=== PATIENT | female | born 1940 | race Caucasian/White ===

== ENCOUNTER 2021-05-28 00:05 | Emergency (ER) | payer MEDICARE, SELFPAY ==
[2021-05-28 00:12] VITALS: BP 137/77; PULSE 100; RESP 20; TEMP 36.8; O2SAT 97
[2021-05-28 01:00] VITALS: BP 130/70; PULSE 97; RESP 19; O2SAT 99
[2021-05-28 02:00] VITALS: BP 129/88; PULSE 99; RESP 14; O2SAT 97
--- NOTE | 2021-05-28 02:40 | ED.GENADULT ---
HPI - General Adult General Chief complaint: Dental/Oral Stated complaint: uncontrolled bleeding from the mouth Time Seen by Provider: 05/28/21 00:39 Source: patient and family Mode of arrival: ambulatory Limitations: no limitations History of Present Illness HPI narrative: Patient is 81 years old white female came with bleeding from the right side of lower lip started prior to arrival to the emergency room. 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 No blood thinner. Related Data Allergies Allergy/AdvReac Type Severity Reaction Status Date / Time Penicillins Allergy Mild HIVES Verified 05/28/21 00:16 doxycycline AdvReac Unknown CAUSED Verified 05/28/21 00:16 ESOPHAGITIS PER PT Review of Systems Review of Systems: CONSTITUTIONAL: Denies fever, chills, or sweats. EYES: Denies visual changes, redness, or discharge. ENT: Denies rhinorrhea, congestion, sore throat, or otalgia. CARDIOVASCULAR: Denies chest pain, palpitations, or edema. RESPIRATORY: Denies cough or dyspnea. GASTROINTESTINAL: Denies abdominal pain, nausea, vomiting, or diarrhea. GENITOURINARY: Denies dysuria or hematuria. SKIN: Denies rash or itching. MUSCULOSKELETAL: Denies back pain, joint pain, or myalgia. NEUROLOGIC: Denies headache, numbness, or weakness. PSYCHIATRIC: Denies anxiety or depression. Exam Narrative: General appearance: Well-developed, well-nourished ENT: Lower lip showed 2 mm hole pouring blood. Neck: Supple, nontender Chest and respiratory: Airway patent, no respiratory distress, no accessory muscle use Heart: Regular rate/rhythm Neurologic: Alert and oriented ?3, SELF [employer]ED [employer] is normal as tested, no gross motor deficit Course Course Emergency Course: Stable, improved Vital Signs Vital signs: Vital Signs Temperature 36.8 C 05/28/21 00:12 Pulse Rate 100 05/28/21 00:12 Respiratory Rate 20 05/28/21 00:12 Blood Pressure 137/77 05/28/21 00:12 Pulse Oximetry 97 05/28/21 00:12 Temperature 36.8 C 05/28/21 00:12 Pulse Rate 100 05/28/21 00:12 Respiratory Rate 20 05/28/21 00:12 Blood Pressure 137/77 05/28/21 00:12 Pulse Oximetry 97 05/28/21 00:12 Procedures Other Procedure Procedure 1: Other Procedure: Postbiopsy bleeding, and left side of lower lip, local pressure for 20 minutes did not show any significant improvement, silver nitrate cauterization x2 was good enough to stop the bleeding. Patient tolerated the procedure well. Medical Decision Making MDM Narrative Medical decision making narrative: Local pressure for 20 minutes did not stop the bleeding, silver nitrate cauterization was good enough to stop the Pletal. Patient felt okay. Patient was observed for 1 hour after cauterization, no active bleeding. Differential Diagnosis Differential Diagnosis: Post biopsy bleeding Vital Signs Vital Signs: Vital Signs Temperature 36.8 C 05/28/21 00:12 Pulse Rate 100 05/28/21 00:12 Respiratory Rate 20 05/28/21 00:12 Blood Pressure 137/77 05/28/21 00:12 Pulse Oximetry 97 05/28/21 00:12 Temperature 36.8 C 05/28/21 00:12 Pulse Rate 100 05/28/21 00:12 Respiratory Rate 20 05/28/21 00:12 Blood Pressure 137/77 05/28/21 00:12 Pulse Oximetry 97 05/28/21 00:12 Lab Data Labs: Lab Results 05/28/21 Range/Units 01:22 Hep Bs Antibody Pending Hepatitis C Ab Screen Pending HIV 1&2 Ab/P24 Ag 4thGn Pending Critical Care Time Critical Care Time Critical Care Time: No Discharge Plan Discharge Clinical Impression: Post-op bleeding Qualifiers: Surgical complication system/body Area: skin Procedure type: dermatologic Qualified Code(s): L
== END 2021-05-28 02:50 | disposition home or self-care (01) ==
PROVIDERS: Emergency Provider Emergency Medicine; PCP Internal Medicine
DX: L76.21 Postprocedural hemorrhage of skin and subcutaneous tissue following a dermatologic procedure (principal)
CPT/HCPCS: 12011; 36415; 86703; 86706; 86803; 99283; G0432

== ENCOUNTER 2021-05-28 00:50 | Outpatient (CLI) | payer OTHER, SELFPAY ==
[2021-05-28 02:45] LABS: HIV 1/2 Ab P24 Ag Result Negative (Negative); Hepatitis B Surface Anti Res Negative; Hepatitis C Virus Antibody Negative (Negative)
== END 2021-05-28 00:51 | disposition home or self-care (01) ==
LOC: ANHED 06-25 15:38
PROVIDERS: Emergency Medicine; PCP Internal Medicine
DX: T14.8XXA Other injury of unspecified body region, initial encounter (principal)
CPT/HCPCS: 36415; 86703; 86706; 86803; G0432

== ENCOUNTER 2022-02-24 15:00 | Outpatient (RCR) | payer MEDICARE, SELFPAY ==
--- NOTE | 2021-12-10 16:39 | STOPEVAL ---
Thank you for referring Nahomi Fry to [facility].? The patient is scheduled to be seen for therapy? 2x/week for 4 weeks. Please review, sign, date and return this plan of care JIMENEZ. I agree with and certify that the following plan of care is medically necessary. 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 She reported no difficulty with chewing or swallowing following this surgery and was able to swallow pills on the back of the tongue. She reports the physician used muscle from the back to the front (of the tongue) and now tongue deviates to the right upon protrusion. She then stated that her physician was monitoring her lips as a precautionary measure. She stated it was biopsied twice, in 10/19, it was clear, however around May or June 2021 it was again judged to be okay, and she received two stitches in the lip that didn't hold and a hole in the lip began bleeding. She reports she came to [facility] where it was cauterized however she returned back to [facility] when it opened again and she required additional stitches. , her physician found white stuff and she underwent surgery to remove the cancer on 08/31/21. 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
--- NOTE | 2021-12-24 16:30 | PCSTNOTE ---
Patient cancelled last week and this week due to health issues. Will be trying to return next week.
--- NOTE | 2022-01-06 16:18 | STOPEVAL ---
Thank you for referring Nahomi Fry to [facility].? The patient is has made progress in her swallowing skills. She will continue in therapy? 2x/week for 4 weeks. Please review, sign, date and return this plan of care JIMENEZ. I agree with and certify that the following plan of care is medically necessary. Referring Physician Date Attending Provider: Rosalia Escalera, FELIX Therapy Assessment Status Assessment Status Assessment Status Progress Pain Assessment Timing of Pain Assessment Timing of Pain Assessment Pre-Treatment Self Report Self Report Pain Level 0 Pain Score Pain Score 0: Self Report Bedside Swallow Evaluation Consistency Solid Consistency Method of Presentation Finger/Hand Behaviors Observed Lengthy Oral Transit Time, Multiple Swallows Used,Oral Residue,Reduced Anterior Contain Occurrence of Coughing None Swallow Palpation Results Good Swallow Initiation,Strong Laryngeal Elevation Pureed Consistency 5 mL Method of Presentation Spoon Behaviors Observed Effortful Swallow,Multiple Swallows Used,Oral Residue, Reduced Anterior Contain Occurrence of Coughing None Vocal Quality After Swallowing Clear Swallow Palpation Results Good Swallow Initiation,Strong Laryngeal Elevation Thin Uncontrolled 1 Method of Presentation Straw Behaviors Observed Apparently Normal Swallow Occurrence of Coughing None Vocal Quality After Swallowing Clear Swallow Palpation Results Good Swallow Initiation,Strong Laryngeal Elevation Tolerance Tolerance For Swallow Slight Distress Alertness Awake/Safe Cooperativeness Calm,Cooperative Attention Attentive Awareness of Swallowing Problem Aware Awareness of Secretions Aware Postural Control Moves Independently Fatigability Does Not Fatigue Limiting Factors Comments See Clinical Summary. Recommendations Feeding Type Recommended Oral Supervision Recommended Eat Independently Positions Used Upright Food Consistency Minced and Moist, Level 5 Liquid Consistency Thin (0) Mealtime Procedures Recommended Alternate Solids/Liquids,Small Bites/Sips Bedside Swallow Comments See Clinical Summary. ST Clinical Summary Clinical Summary ST Clinical Summary Patient has been seen for a Swallowing Evaluation and four treatment sessions to address
--- NOTE | 2022-01-13 15:18 | PCSTNOTE ---
Cancelled on Thursday 01/11 due to illness.
--- NOTE | 2022-02-03 16:36 | STOPEVAL ---
SPEECH THERAPY PROGRESS NOTE AND PLAN TO CONTINUE Thank you for referring Nahomi Fry to [facility].? The patient is scheduled to be seen for therapy? 2x/week for 4 weeks. Please review, sign, date and return this plan of care JIMENEZ. I agree with and certify that the following plan of care is medically necessary. Referring Physician Date Attending Provider: Rosalia Escalera, FELIX Therapy Assessment Status Assessment Status Assessment Status Progress Pain Assessment Timing of Pain Assessment Timing of Pain Assessment Pre-Treatment Self Report Self Report Pain Level 0 Pain Score Pain Score 0: Self Report Bedside Swallow Evaluation Consistency Solid Consistency Method of Presentation Spoon Behaviors Observed Apparently Normal Swallow, Lengthy Oral Transit Time,Oral Residue Occurrence of Coughing None Vocal Quality After Swallowing Clear Swallow Palpation Results Good Swallow Initiation,Strong Laryngeal Elevation Pureed Consistency 5 mL Method of Presentation Spoon Behaviors Observed Apparently Normal Swallow Occurrence of Coughing None Vocal Quality After Swallowing Clear Swallow Palpation Results Good Swallow Initiation,Strong Laryngeal Elevation Thin Uncontrolled 1 Method of Presentation Straw Behaviors Observed Apparently Normal Swallow Occurrence of Coughing None Vocal Quality After Swallowing Clear Swallow Palpation Results Good Swallow Initiation,Strong Laryngeal Elevation Tolerance Tolerance For Swallow Slight Distress Swallowing Comments See Clinical SUmmary. Recommendations Feeding Type Recommended Oral ST Clinical Summary Clinical Summary ST Clinical Summary PROGRESS NOTE When asked if Speech Therapy has been helpful, patient stated that yes, she never would have eaten the foods she has been eating since initiation of ST, including spaghetti, ravioli, peaches, and cream filled donuts. Patient stated that she feels the need to continue in order to practice swallowing pills whole or cut into pieces in order to avoid crushing medicines. She also stated that she feels she only consumes small amount of
--- NOTE | 2022-03-03 10:44 | PCSTNOTE ---
Patient cancelled this session today; she is rescheduled for one day next week, the . A re-evaluation will be performed that date to determine progress and to assess need to continue.
== END 2022-03-10 23:59 | disposition home or self-care (01) ==
LOC: ANHST 15:00
PROVIDERS: PCP Internal Medicine; Visit Provider Physician Assistant Medical
DX: C00.1 Malignant neoplasm of external lower lip (principal); Z98.890 Other specified postprocedural states
CPT/HCPCS: 92526; 92610

== ENCOUNTER 2022-03-05 18:52 | Emergency (ER) | payer MEDICARE, SELFPAY ==
--- NOTE | ~2022-03-05 | XR_ITS ---
XR hip RT 2V w AP pelvis DATE: 03/05/2022 19:35 INDICATION: Fall today. Right hip pain. TECHNIQUE: AP pelvis. AP and lateral views of right hip. COMPARISON: None FINDINGS: No pelvic fracture or bone destruction is evident. Normal alignment at the pubic symphysis and sacroiliac joints. No fracture or dislocation, avascular necrosis or bone destruction of the right hip. Abdominal aortic calcification. There is a prominent amount fecal material in the rectum and colon. No bowel obstruction is detected. IMPRESSION: No pelvic or right hip fracture or dislocation Reviewed, dictated and finalized at location A.
--- NOTE | ~2022-03-05 | XR_ITS ---
XR shoulder RT min 2V DATE: 03/05/2022 19:36 INDICATION: Fall today. Right rib pain TECHNIQUE: 4 views COMPARISON: None FINDINGS: There is joint space narrowing and degenerative spurring of the right acromioclavicular jorge nt. No fracture or dislocation, periosteal reaction or bone destruction right shoulder Surgical clips overlie the right hilar area. Aortic atherosclerosis. Osteopenia. IMPRESSION: Degenerative change at the right, clavicular joint Reviewed, dictated and finalized at location A.
--- NOTE | ~2022-03-05 | CT_ITS ---
EXAMINATION: CT brain wo con DATE: 03/05/2022 19:45 INDICATION: Dizziness. Patient fell and struck head on a chair. Occipital hematoma. TECHNIQUE: Computed tomography (CT) of the head was performed without intravenous contrast. The mA wa s adjusted according to patient size. Iterative reconstruction technique was employed. Exam dose: 39 4.35 mGy-cm total exam DLP. COMPARISON: 06/20/2010 CT brain FINDINGS: Prominent soft tissue density within the right maxillary sinus. No intracranial mass lesion or hemorrhage or cerebrovascular accident, midline shift or mass effect o r subdural or epidural hematoma is detected. Bilateral carotid siphon internal carotid artery calcifications. There is nonspecific diminished atte nuation of the cerebral white matter, likely due to chronic small vessel ischemic changes. Moderately prominent cerebral and cerebellar volume loss. No skull fracture or bone destruction. IMPRESSION: Cerebral atherosclerosis and chronic small vessel ischemic changes of the cerebral white matter Moderately prominent cerebral and cerebellar volume loss No skull fracture or acute intracranial finding Reviewed, dictated and finalized at Location A. Reviewed, dictated and finalized at location A.
[2022-03-05 18:53] VITALS: BP 122/56; PULSE 91; RESP 18; TEMP 36.3; O2SAT 95
--- NOTE | 2022-03-05 19:10 | PC.NURSE ---
PT AND HER DAUGHTER REPORTS PT HAD ORAL SURGERY FOR SQUAMOUS CELL CARCINOMA AND JUST WAS WEANED OFF NARCOTICS AND DOES NOT WANT STARTED ON THOSE MEDS AGAIN
--- NOTE | 2022-03-05 19:18 | ED.FALL ---
HPI - Fall General Chief Complaint: Fall Stated Complaint: fall/hi Time Seen by Provider: 03/05/22 19:02 Source: RN notes reviewed History of Present Illness HPI Narrative: Patient presents emergency room from home for fall. Patient states that prior to arrival she was out working on floor bed when she tripped and fell she states she struck the right side of her head on a chair and landed on the ground on her right hip and right shoulder she notes pain in the region she denies any loss of consciousness she denies any neck pain chest pain shortness of breath abdominal pain nausea vomiting or any other symptoms states she has not anything for pain denies any numbness or tingling in the extremities Related Data Allergies Allergy/AdvReac Type Severity Reaction Status Date / Time Penicillins Allergy Mild HIVES Verified 05/28/21 00:16 doxycycline AdvReac Unknown CAUSED Verified 05/28/21 00:16 ESOPHAGITIS PER PT Review of Systems Review of Systems: Gen.: Denies fevers or chills Eyes: Denies eye pain or visual change ENT: Denies congestion Respiratory: Denies shortness of breath or cough CV: Denies chest pain or palpitations GI: Denies abdominal pain nausea, emesis or diarrhea Musculoskeletal: See HPI Neuro: Denies numbness, tingling, weakness or focal weakness Skin: Denies rash Except as documented, all other systems reviewed and negative [facility] Past Medical History Medical History (Updated 03/05/22 @ 20:05 by Clyde Montanez DO) Patient denies significant medical history Social History Social History (Updated 03/05/22 @ 19:19 by Clyde Montanez DO) Smoking status: Never smoker Exam Narrative: APPEARANCE: No acute distress, nontoxic, resting in bed EYES: EOMI, PERRL HEENT: Normocephalic, mild area of swelling ecchymosis over left posterior scalp, TMs clear bilaterally nares patent Neck: No midline tenderness palpation full range of motion without pain RESPIRATORY: No respiratory distress Clear to auscultation bilaterally with no rhonchi wheezing or rales. CARDIOVASCULAR: Regular rate and rhythm without murmurs rubs or gallops. ABDOMINAL: Soft, nontender, nondistended, no rebound or guarding MUSCULOSKELETAl: Moves all extremities. No clubbing, cyanosis or edema. Tender palpation right anterior lateral shoulder full range of motion without pain no tenderness of the right elbow or wrist radial pulse 2+ neurovascular intact, tender palpation of the right lateral hip no swelling or ecchymosis no tenderness of the right knee or ankle dorsalis pedis pulse is neurovascular tact no tenderness of the left upper or lower extremity NEURO: Awake and alert x4. Following commands, speech normal, no focal deficits SKIN:: Warm, dry. No rashes lesions or abrasions PSYCHIATRIC: Normal affect/mood, Course Course Emergency Course: Discussed with patient results of workup and diagnosis. Discussed need for follow-up with primary care, proper use of medication, and reasons to return to the emergency department. Patient understands and agrees to current treatment plan Vital Signs Vital signs: Vital Signs Temperature 97.4 F L 03/05/22 18:53 Pulse Rate 91 03/05/22 18:53 Respiratory Rate 18 03/05/22 18:53 Blood Pressure 122/56 L 03/05/22 18:53 Pulse Oximetry 95 03/05/22 18:53 Oxygen Delivery Room Air 03/05/22 18:53 Temperature 97.4 F L 03/05/22 18:53 Pulse Rate 91 03/05/22 18:53 Respiratory Rate 18 03/05/22 18:53 Blood Pressure 122/56 L 03/05/22 18:53 Pulse Oximetry 95 03/05/22 18:53 Oxygen Delivery Room Air 03/05/22 18:53 MDM - Fall Imaging Data Radiologist's impression: ITS Impressions Shoulder X-Ray 03/05/22 19:36 IMPRESSION: Degenerative change at the right, clavicular joint Hip/Pelvis X-Ray 03/05/22 19:38 IMPRESSION: No pelvic or right hip fracture or dislocation Head CT 03/05/22 19:48 IMPRESSION: Cerebral atherosclerosis and chronic small vessel is
--- NOTE | 2022-03-05 19:24 | PC.NURSE ---
Assuming care of pt.
[2022-03-05 20:28] VITALS: BP 137/66; PULSE 77; RESP 18; O2SAT 100
== END 2022-03-05 20:29 | disposition home or self-care (01) ==
PROVIDERS: Emergency Provider Emergency Medicine; PCP Internal Medicine
DX: S00.03XA Contusion of scalp, initial encounter (principal); S70.01XA Contusion of right hip, initial encounter; S40.011A Contusion of right shoulder, initial encounter; I67.2 Cerebral atherosclerosis; W01.190A Fall on same level from slipping, tripping and stumbling with subsequent striking against furniture, initial encounter
CPT/HCPCS: 70450; 73030; 73502; 99284

== ENCOUNTER 2022-04-12 15:00 | Outpatient (RCR) | payer MEDICARE, SELFPAY ==
--- NOTE | 2022-03-15 14:06 | STOPEVAL ---
PROGRESS NOTE AND RE-EVALUATION Thank you for referring Nahomi Fry to [facility].? This patient has been seen for direct swallowing therapy since 12/10/21 with therapy focusing on improving her ability to handle oral feedings. See below for significant progress. The patient will continue for additional sessions and is scheduled to be seen for therapy?2x/week for 5 weeks. Please review, sign, date and return this plan of care JIMENEZ. I agree with and certify that the following plan of care is medically necessary. Referring Physician Date Attending Provider: Rosalia Escalera, FELIX Therapy Assessment Status Assessment Status Assessment Status Progress Outpatient Past Medical History Past Medical History Source of Past Medical History Patient Hx Hematological Disorders No Significant History Endocrine History Hx Diabetes Yes Other History Hx Cancer Yes: Partial glossectomy/lip resection/lack of dentition right side Pain Assessment Timing of Pain Assessment Timing of Pain Assessment Assessment Self Report Self Report Pain Level 0 Pain Score Pain Score 0: [address] Report [address] Clinical Summary Clinical Summary ST Clinical Summary RE-EVALUATION AND PROGRESS NOTE This patient has been seen for an outpatient swallowing therapy evaluation and then treatments up to two times weekly with occasionally omitted visits secondary to illness, heat, and fall. Her last visit was 02/25 and her re-evaluation was scheduled for March 05 however sessions were cancelled until this visit date due to above- mentioned issues. During treatment sessions, therapy focused on increasing strength of the oral motor movements to facilitate safe swallowing (i.e. labial/ lingual rate, range, and strength of movement), and safe swallowing strategies for semi-solid to soft solid foods. Patient was able to increase diet consistency from liquid and semi-solid (yogurt /mashed cheesecake) to soft solids such as ravioli in tomato sauce, fettucini in
--- NOTE | 2022-04-05 09:29 | PCSTNOTE ---
Patient cancelled both sessions this week, today due to heat and due to a previous conflicting appointment.
--- NOTE | 2022-04-13 08:22 | STOPEVAL ---
Thank you for referring Nahomi Fry to [facility].? The patient is being discharged today. Please see Discharge Summary. I understand that patient is being discharged from skilled Speech Therapy at this time. Referring Physician Date Attending Provider: Rosalia Escalera PA-C Therapy Assessment Status Assessment Status Assessment Status Discharge Outpatient Past Medical History Past Medical History Source of Past Medical History Patient Neurological History Endocrine History Hx Diabetes Yes Other History Hx Cancer Yes: Partial glossectomy/lip resection/lack of dentition right side Pain Assessment Timing of Pain Assessment Timing of Pain Assessment Assessment Self Report Self Report Pain Level 0 Pain Score Pain Score 0: Self Report ST Clinical Summary Clinical Summary ST Clinical Summary The patient was seen for a re- evaluation/progress/discharge session at this time. She has been seen only one time since last re-evaluation/progress note due to illness and also reports of difficulty breathing in the heat that we have experienced since last evaluation. Patient reports she has not been increasing her intake of soft solid foods and has reported no significant changes in diet or intake. She continues to consume liquid and pureed consistencies of liquid yogurt, Ensure shakes, bananas, and mashed potatoes. She has successfully consumed noodles, ravioli, tuna salad, and canned peaches here in the therapy room yet she admits she has not increased her intake of these soft foods independently at home due to fear of choking (although she has never choked or come close to choking on soft solids in the therapy department. Today, the patient consumed small pieces of watermelon, initially starting with small
== END 2022-04-14 11:30 | disposition home or self-care (01) ==
LOC: ANHST 15:00
PROVIDERS: PCP Physician Assistant Medical; Visit Provider Physician Assistant Medical
DX: C00.1 Malignant neoplasm of external lower lip (principal); Z98.890 Other specified postprocedural states
CPT/HCPCS: 92526

== ENCOUNTER 2022-05-17 12:42 | Outpatient (RCR) | payer MEDICARE, SELFPAY ==
[2022-05-17 12:45] VITALS: BMI 20.6
== END 2022-08-02 09:50 | disposition home or self-care (01) ==
LOC: ANHWOC 12:42
PROVIDERS: PCP Physician Assistant Medical; Visit Provider Physician Assistant Medical
DX: L89.90 Pressure ulcer of unspecified site, unspecified stage (principal)
CPT/HCPCS: 99213; G0463

== ENCOUNTER 2022-07-12 17:39 | Emergency (ER) | payer MEDICARE, SELFPAY ==
--- NOTE | 2022-07-12 17:41 | ED.URI ---
HPI - URI/Sore Throat General Chief Complaint: Upper Respiratory Infection Stated Complaint: Sore Throat Time Seen by Provider: 07/12/22 18:15 Source: patient and RN notes reviewed Mode of arrival: ambulatory Limitations: no limitations History of Present Illness HPI Narrative: 82-year-old female presents with concern of sore throat on the left side. Reports symptoms started this morning. Reports 2 days ago she had trouble swallowing a pill and felt like it may have scratched her throat. She reports some mild rhinorrhea and cough which she always has, she denies any change in the symptoms. She denies fever, body aches, chills, sweats, nasal congestion, headache. Patient has a history of cancer for which she had a radical facial surgery, she reports she had a CT scan that was clear within the last several weeks. MD elicited complaint: sore throat Related Data Allergies Allergy/AdvReac Type Severity Reaction Status Date / Time Penicillins Allergy Mild HIVES Verified 07/12/22 18:01 doxycycline AdvReac Unknown CAUSED Verified 07/12/22 18:01 ESOPHAGITIS PER PT Review of Systems Review of Systems: CONSTITUTIONAL: Denies malaise, chills, sweats, or fever. EYES: Denies visual changes, redness, or discharge. ENT: Reports mild rhinorrhea. Congestion, sinus pain, otalgia. Reports sore throat. CARDIOVASCULAR: Denies chest pain, palpitations, or edema. RESPIRATORY: Reports mild cough. Denies dyspnea. GASTROINTESTINAL: Denies abdominal pain, nausea, vomiting, diarrhea SKIN: Denies rash or itching. MUSCULOSKELETAL: Denies myalgia. NEUROLOGIC: Denies headache. All systems reviewed & are unremarkable except as noted in HPI and below PMFSH Past Medical History Medical History Patient denies significant medical history Social History Social History (Updated 05/12/22 @ 13:55 by Brisa Hastings MA) Smoking status: Never smoker Alcohol intake: never Substance use: never Gender identity (if verbalized by the patient): Female Comments At time of signature, agree with nursing past medical, surgical, social and family history. There is no relevant family history pertinent to the presenting complaint Exam Narrative: GENERAL: Well-appearing, well-nourished, and in no acute distress. HEAD: Normocephalic EYES: PERRLA, conjunctivae clear ENT: Nares clear, turbinates edematous and erythematous, clear discharge. Mucous membranes moist. TM pearly dietrich with dull light reflex bilaterally; no tragal tenderness. Oropharynx not erythematous without lesions. Tonsils not enlarged and without exudate, no drooling, no hoarseness, no trismus, uvula midline. NECK: Supple. No lymphadenopathy CHEST: Clear to auscultation, breath sounds equal. No wheezing, rhonchi, rales, or stridor. No respiratory distress, speaks in full sentences. HEART: Regular rate and rhythm. No murmur heard. SKIN: Warm, dry, no rash. NEURO: Alert and oriented x3. PSYCH: Normal mood and affect Course Course Emergency Course: Patient is aware of diagnosis, understands and agrees to treatment plan. Anticipatory guidance given. Patient agrees to follow-up as directed and is aware of reasons to seek care at the emergency department. Portions of this record may have been created with voice recognition software Level of Care: Express Care Visit Vital Signs Vital signs: Reviewed. MDM - URI/Sore Throat MDM Narrative Medical decision making narrative: Differential diagnosis considered: Tracy virus, strep pharyngitis, allergic rhinitis, upper respiratory tract infection, sinusitis, rhinosinusitis, nasopharyngitis. viral pharyngitis, otitis media, otitis externa, pneumonia, bronchitis, viral cough syndrome, viral syndrome, and influenza. Exam findings show no acute concerns or changes; patient is non-toxic appearing and is in no distress. Patient is appropriate for outpatient treatment and follow-up. Lab Data Att
[2022-07-12 17:53] VITALS: BP 120/69; PULSE 90; RESP 16; TEMP 36.3; O2SAT 98
== END 2022-07-12 18:57 | disposition home or self-care (01) ==
PROVIDERS: Emergency Provider Nurse Practitioner
DX: J02.0 Streptococcal pharyngitis (principal); E78.00 Pure hypercholesterolemia, unspecified; I10 Essential (primary) hypertension
CPT/HCPCS: 87081; 87880; 99213; G0463

== ENCOUNTER 2022-07-15 21:34 | Observation (INO) | payer MEDICARE, SELFPAY ==
--- NOTE | ~2022-07-15 | MR_ITS ---
EXAMINATION: MR MRCP wo/w con/w 3D wo ind DATE: 07/16/2022 15:13 INDICATION: Abdominal pain. Dilated bile ducts. TECHNIQUE: Magnetic resonance imaging (MRI) of the abdomen was performed without and with 10 mL Multi Kennedy intravenous contrast. Sequences included coronal T2-weighted FS FSE, coronal T2-weighted FSE, a xial T1-weighted LAVA, coronal FS FIESTA, axial dual-echo T1-weighted SPGR, coronal lava-FLEX, sagitt al T2-weighted FSE, axial T2-weighted FSE, and axial DWI. Thick-slab T2-weighted FSE images were obta ined for magnetic resonance cholangiopancreatography (MRCP). Maximum intensity projection 3-D reconst ructions of the volumetric data were created by the technologist. Postcontrast sequences included cor onal LAVA-flex and time course of axial T1-weighted LAVA. COMPARISON: CT abdomen and pelvis 07/15/2022 FINDINGS: ABDOMEN MRI: There is mild elevation of left hemidiaphragm. There is severe intrahepatic biliary duct dilatation. There is a 10 mm cystic lesion in the head of the pancreas that abuts the main pancreati c duct, likely not clinically significant given the patient's age. There are cysts in the spleen jose manuel uring up to 9 mm. The adrenal glands are normal. There is cortical thinning of the kidneys. There are no dilated loops of bowel. There are no pathologically enlarged lymph nodes. There is no free intrap eritoneal fluid. ABDOMEN MRCP: The common duct measures 2.7 cm. There is no choledocholithiasis. IMPRESSION: 1. Severe intrahepatic and extrahepatic biliary duct dilatation status post cholecystectomy, likely n ot clinically significant given the normal liver function tests. Reviewed, dictated and finalized at location A. [employer]CE [employer]SULT[employer] IMPRESSION: 1. Severe intrahepatic and extrahepatic biliary duct dilatation status post cho lecystectomy, likely not clinically significant given the normal liver function tests.
--- NOTE | ~2022-07-15 | XR_ITS ---
EXAMINATION: XR chest 2V DATE: 07/16/2022 00:23 INDICATION: Fever. Cough. Sepsis. TECHNIQUE: Frontal and lateral views of the chest were obtained. COMPARISON: Chest 2 views 06/21/2013, CT abdomen and pelvis 07/15/2022 FINDINGS: There is volume loss in right hemithorax with surgical clips at right hilum from lobectomy. There is chronic mild scarring in right midlung zone. A calcified left lung nodule and calcified lef t hilar and mediastinal lymph nodes are consistent with old granulomatous disease. There are intersti tial opacities in the lower lung zones. No pleural effusion or pneumothorax. The heart size is normal . There is an old healed fracture of right sixth rib. Surgical clips in the right upper quadrant are likely from cholecystectomy. 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 IMPRESSION: 1. Reticular opacities in the lower lung zones, consistent with mild pulmonary edema versus chronic i nterstitial lung disease. 2. Right-sided lobectomy. Reviewed, dictated and finalized at location A. NMAN IMPRESSION: 1. Reticular opacities in the lower lung zones, consistent with mild pulmonary edema versus chronic interstitial lung disease. 2. Right-sided lobectomy.
--- NOTE | ~2022-07-15 | CT_ITS ---
EXAMINATION: CT abdomen pelvis w con DATE: 07/16/2022 00:05 INDICATION: Nausea, vomiting and fever. TECHNIQUE: Computed tomography (CT) of the abdomen and pelvis was performed with 100 cc Omnipaque 350 intravenous contrast. The dose-length product was 243.24 mGy-cm. Automated exposure control and iter ative reconstruction technique were employed. COMPARISON: None. FINDINGS: There is dependent atelectasis. There are groundglass opacities in the lower lungs, nonspec ific. Mild emphysema. Heart size is normal. No significant pleural or pericardial effusion. There is atherosclerosis of the aorta. No evidence for aneurysm. Colonic diverticulosis without evidence for d iverticulitis. There are calcified granulomas of the spleen. Unremarkable appendix. Fatty infiltration of the liver. Status post cholecystectomy. There is dilated common bile duct measu ring up to 2.9 cm. No obstructing stone or mass is identified. There are small low-density lesions in the spleen which are too small to characterize, although statistically likely benign. The pancreas, adrenal glands and kidneys are unremarkable. Unremarkable appendix. There is fluid throughout the sma ll bowel and colon. No definite obstruction. Colonic diverticulosis without evidence for diverticulit is. Bladder wall is thickened. There is demineralization. There is osteoarthritis of the hips. There is a subtle lytic lesion of the left ilium, coronal image 62. Mild lower thoracic and lumbar spondylo sis. IMPRESSION: 1. Fluid present throughout the small bowel and colon. Correlate clinically for enterocolitis. 2: Bladder wall thickening which may be in part due to underdistention, although cystitis should be considered. 3: Solitary lytic lesion of the left ilium, nonspecific, although myeloma and metastatic disease are not excluded. 4: Dilated common bile duct measuring up to 2.9 cm. This may be attributable to prior cholecystectomy and patient's age. No obstructing stone or mass identified. Consider correlation with MRCP. Reviewed, dictated and finalized at location A. ER HAND IMPRESSION: 1. Fluid present throughout the small bowel and colon. Correlate clinically for enterocolitis. 2: Bladder wall thickening which may be in part due to underdistention, althou gh cystitis should be considered. 3: Solitary lytic lesion of the left ilium, nonspecific, although myeloma and m etastatic disease are not excluded. 4: Dilated common bile duct measuring up to 2.9 cm. This may be attributable to prior cholecystectomy and patient's age. No obstructing stone or mass identifi ed. Consider correlation with MRCP.
[2022-07-15 21:40] VITALS: BP 101/43; PULSE 113; RESP 20; TEMP 36.9; O2SAT 100
[2022-07-15 21:49] LABS: Glucose Point of Care 215 mg/dl (65-105)
[2022-07-15 21:59] LABS: Hematocrit 40.7 % (37.0-47.0); Hemoglobin 12.9 g/dL (12.0-15.0); Mean Corpuscular HGB Conc 31.7 g/dl (32-36); Mean Corpuscular Hemoglobin 28.4 pg (26-34); Mean Corpuscular Volume 89.5 fl (80-100); Mean Platelet Volume 10.8 fl (7.4-10.4); Platelet Count Result 209 k/mm3 (150-375); Red Blood Count 4.55 M/mm3 (4.2-5.4); Red Cell Distribution Width 12.5 % (11.5-14.5); White Blood Count 4.9 K/mm3 (4.5-10.0)
[2022-07-15 22:15] LABS: Alanine Aminotransferase 24 U/L (6-35); Albumin Level 4.1 g/dL (3.5-5.1); Alkaline Phosphatase 105 U/L (38-126); Anion Gap 12 mmol/L (8-16); Aspartate Amino Transferase 35 U/L (14-36); Bilirubin,Total 0.6 mg/dL (0.2-1.3); Blood Urea Nitrogen 35 mg/dL (7-17); Calcium 8.9 mg/dL (8.4-10.2); Carbon Dioxide 25 mmol/L (22-30); Chloride 99 mmol/L (98-107); Estimated CRCL calculation 24 ml/min; Estimated Glomerular Filt Rate 36; Glucose 219 mg/dL (65-110); Lipase 53 U/L (23-300); Potassium 3.7 mmol/L (3.4-5.0); Sodium 136 mmol/L (137-145)
[2022-07-15 22:20] LABS: Band Neutrophils Percent 17 % (0-6); Lymphocytes Absolute Manual 0.78 K/mm3 (1.1-4.5); Monocytes Absolute Manual 0.49 K/mm3 (0.1-0.90); Monocytes Percent Manual 10 % (3-9); Neutrophils Absolute Manual 3.62 K/mm3 (1.7-7.2); Neutrophils Percent Manual 57 % (46-73); Platelet Estimate Adequate (Adequate); Total Cells Counted 100
[2022-07-15 22:21] LABS: Hypochromasia 1+ (NORMAL); Schistocytes None Seen (NORMAL)
--- NOTE | 2022-07-15 23:15 | ED.GENADULT ---
HPI - General Adult General Chief complaint: Fever Stated complaint: fever, N/V/D Time Seen by Provider: 07/15/22 22:59 History of Present Illness HPI narrative: Patient is an 82-year-old female with a history of tongue cancer status post resection at [facility], here for evaluation of fever, nausea and vomiting of the past day. Patient tells me that she has had about 5-6 episodes of vomiting bilious emesis today associated with epigastric discomfort. She also had a fever up to 100.9, took Tylenol which resolved and is afebrile now. Patient also repeats decreased appetite, has only had an Ensure this morning and threw it up shortly afterwards. Patient states that she has had upper respiratory infectious type symptoms over the past week with a cough, sinus congestion and pressure. Has been attempting Zyrtec without relief of her symptoms. She also had a lesion removed by her ingot stripper last week and pathology was negative for cancer. Related Data Home Medications Medication Instructions Recorded Confirmed fluticasone propionate 50 2 spray intranasal DAILY 07/16/22 07/16/22 mcg/actuation nasal spray,suspension metformin 500 mg tablet 250 mg PO BID 07/16/22 07/16/22 sitagliptin phosphate 50 mg tablet 50 mg PO DAILY 07/16/22 07/16/22 (Januvia) Allergies Allergy/AdvReac Type Severity Reaction Status Date / Time Penicillins Allergy Mild HIVES Verified 07/15/22 23:42 doxycycline AdvReac Unknown CAUSED Verified 07/15/22 23:42 ESOPHAGITIS PER PT Review of Systems Review of Systems: Gen: Reports fevers. Denies fevers or chills Eyes: Denies eye pain or visual change ENT: Denies congestion Respiratory: Denies shortness of breath or cough CV: Denies chest pain or palpitations GI: Reports nausea, vomiting, diarrhea. Denies abdominal pain denies burning, urgency, frequency or hematuria Musculoskeletal: Denies back pain or muscle pain Neuro: Denies numbness, tingling, weakness or focal weakness Skin: Denies rash Except as documented, all other systems reviewed and negative [facility] Past Medical History Medical History Anxiety and depression Dyslipidemia Essential hypertension GERD (gastroesophageal reflux disease) Patient denies significant medical history Type 2 diabetes mellitus Surgical History Surgical History H/O oral surgery Family History Family History (Updated 07/16/22 @ 05:48 by Neena Gooden RN) Father Lymphoma Mother Cervical cancer Social History Social History Smoking status: Never smoker Alcohol intake: never Substance use: never Lack of Transportation: No Lack of Food: Never True Current Housing: I Have Housing Concerned About Future Housing: No Difficulty Paying Gas/Electric Bills: No Difficulty Paying for Meds: No Currently Unemployed: No Education: High School Diploma/GED Difficulty w/ Childcare or Family Care: No Gender identity (if verbalized by the patient): Female Spiritual care concerns: No Exam Narrative: APPEARANCE: Well appearing, no pain in distress, well-nourished. Head: Postsurgical appearance of chin and cheek EYES: PERRLA/EOMI, conjunctivae clear NOSE: No nasal drainage EARS: External ear normal in appearance THROAT: Oropharynx is clear. Mucous membranes are moist. NECK: Supple. No adenopathy, no masses. RESPIRATORY: Airway patent, respirations nonlabored. Clear to auscultation bilaterally, no rales, rhonchi, wheezing. CARDIOVASCULAR: Regular rate and rhythm without murmurs, rubs, or gallops. ABDOMINAL: Hyperactive bowel sounds. Soft, nontender, nondistended. No rebound tenderness or guarding. MUSCULOSKELETAL: Extremities are warm and well-perfused. Moves all extremities well. No edema. NEURO: Normal speech. No focal neurologic deficits. SKIN:
[2022-07-15 23:32] VITALS: BP 110/75; PULSE 105
[2022-07-15 23:48] LABS: Lactic Acid Reflex 2.2 mmol/L (0.7-2.0)
[2022-07-16] MEDS: ONDANSETRON INJ 4 MG/2 ML VIAL IV PUSH (00:11)
[2022-07-16] MEDS: SODIUM CHLORIDE 0.9% IV 1,000 ML 999 ML IV CONT ×2 (00:12→00:41)
[2022-07-16 00:17] LABS: Appearance Urine Cloudy (Clear); Bilirubin Urine 1+ (Negative); Blood Urine Trace-intact (Negative); Color Urine Yellow (Yellow); Glucose Urine UA Negative (Negative); Ketones Urine Trace mg/dL (Negative); Leukocyte Esterase Ur 2+ LEU/UL (Negative); Nitrate Urine Positive (Negative); Protein Urine 2+ mg/dL (Negative); Specific Grav Ur 1.015 (1.001-1.035); Urobilinogen Urine 0.2 mg/dL (<2.0); pH Urine 8.5 (5.0-9.0)
[2022-07-16 00:21] LABS: Bacteria Urine Trace /hpf; Hyaline Casts Urine 15-19 /lpf; Mucus Urine Rare /lpf; WBC Clumps Urine Present /HPF; WBC Urine >75 /hpf
[2022-07-16 00:25] LABS: Add Urine Microscopic? YES
[2022-07-16 00:40] LABS: Influenza A QL RT-PCR Negative (Negative); Influenza B QL RT-PCR Negative (Negative); SARS-CoV-2 RNA PCR Negative
[2022-07-16 02:40] VITALS: BP 114/56; PULSE 98; RESP 16; O2SAT 95
[2022-07-16 04:36] LABS: Reflex Lactic Acid Yes or No Add Lactic
--- NOTE | 2022-07-16 05:01 | PM.IMHP ---
H&P: HPI History of Present Illness Date/Time: 07/16/22 05:01 Chief Complaint: Fever, nausea, vomiting Narrative: Patient is an 82-year-old female with past medical history of tongue cancer status post surgery, dysphagia, type 2 diabetes, anxiety/depression, essential hypertension, hyperlipidemia presents to the ED with complaints of nausea vomiting and fever. Patient was in her usual state of health and developed epigastric pain and nausea vomiting today. She had T-max of 100.9? at home and has take Tylenol. Recently patient was seen by upholstery estimator a few weeks ago and had lesion removed on her face, plan was for outpatient follow-up this week for sutures removal. She was told pathology was negative for cancer on her face. For patient's tongue cancer history she has difficulty opening her mouth from the surgery and limits her p.o. intake to soft foods. She denies any cough or aspiration episodes. She had distant history of UTIs. In the ED: Vitals are stable, she is tachycardic. Creatinine elevated 1.4, patient was given IV fluids for suspected prerenal azotemia considering patient's nausea vomiting. Urinalysis was consistent with likely infection with positive leuk esterase and patient was given a dose of Rocephin. Patient has a penicillin allergy of hives only and has tolerated cephalosporin. With patient decreased p.o. intake and nausea vomiting along with this urinary tract infection patient will be admitted for observation. She denies any dysuria or urinary symptoms. Review of Systems Review of Systems: Constitutional: No Fever, No Chills, No Night Sweats, No Fatigue, No Malaise ENT/Mouth: No Hearing Changes, No Ear Pain, No Nasal Congestion, No Sinus Pain, No Hoarseness, No sore throat, No Rhinorrhea, No Swallowing Difficulty. Endorses itchy scalp Eyes: No Eye Pain, No Redness, No Vision Changes Cardiovascular: No Chest Pain, No Palpitations, No Dyspnea on Exertion, No Orthopnea, No Claudication, No Edema Respiratory: No Cough, No Sputum, No Wheezing, No Shortness of Breath Gastrointestinal: Endorses nausea vomiting, abdominal discomfort Genitourinary: No Dysuria, No Urinary Frequency, No Hematuria, No Urinary Incontinence, No Urgency Musculoskeletal: No Arthralgias, No Myalgias, No Joint Swelling, No Joint Stiffness, No Back Pain Skin: No Skin Lesions, No Pruritis, No Hair Changes Neuro: No Weakness, No Numbness, No Paresthesias, No Loss of Consciousness, No Syncope, No Dizziness, No Headache Psych: No Anxiety/Panic, No Depression, No Insomnia Heme: No Bruising, No Bleeding Lymph: No Adenopathy Endocrine: No Polyuria, No Polydipsia, No Temperature Intolerance PMFSH Past Medical History Medical History Anxiety and depression Dyslipidemia Essential hypertension GERD (gastroesophageal reflux disease) Patient denies significant medical history Type 2 diabetes mellitus Surgical History Surgical History H/O oral surgery Family History Family History Father Lymphoma Social History Social History Smoking status: Never smoker Alcohol intake: never Substance use: never Gender identity (if verbalized by the patient): Female Meds Home Medications and Allergies Home Medications Medication Instructions Recorded Confirmed Type sitagliptin phosphate 50 mg tablet 50 mg PO DAILY #90 tabs 04/15/22 07/12/22 Rx (Januvia) ketoconazole 2 % topical cream 1 applic topical BID #30 grams 04/30/22 07/12/22 Rx metformin 500 mg tablet 500 mg PO DAILY #90 tabs 05/12/22 07/12/22 Rx sertraline 50 mg tablet 50 mg PO DAILY #90 tabs 05/12/22 07/12/22 Rx lorazepam 0.5 mg tablet 0.5 mg PO TID PRN Anxiety #90 tabs 05/31/22 07/12/22 Rx simvastatin 20 mg tablet 20 mg PO DAILY #90 tabs
--- NOTE | 2022-07-16 05:44 | ADMGEN ---
This patient, Nahomi Fry, was admitted to 3 Med Surg Room 306-01 @0250. Patient/family oriented to hospital policies and general routines including ID bracelet, bed and alarms, visiting hours, pain management, procedures, bathroom and other care routines, personal items, smoking policy, room service/diet, and visiting hours. Information on how to activate the Rapid Response Team has been discussed. Patient/Family are encouraged to report perceived risks to care and to ask questions if they do not understand what they are told or what they should do.
[2022-07-16 06:00] VITALS: BP 109/50; PULSE 97; RESP 20; TEMP 36.8; O2SAT 98; BMI 37.9
[2022-07-16] MEDS: SODIUM CHLORIDE 0.9% IV 1,000 ML 100 ML IV CONT (06:49)
[2022-07-16 07:45] LABS: Lactic Acid 0.8 mmol/L (0.7-2.0)
[2022-07-16 07:49] LABS: Glucose Point of Care 203 mg/dl (65-105)
[2022-07-16 08:00] VITALS: BP 108/43; PULSE 90; RESP 20; TEMP 36.2; O2SAT 95
[2022-07-16] MEDS: INSULIN ASPART (*BKC) 100 UNITS/ML SUB-Q (09:03)
[2022-07-16] MEDS: HEPARIN SODIUM 5,000 UNITS/ML VIAL 5000 UNITS SUB-Q ×2 (09:04→21:07)
[2022-07-16] MEDS: SERTRALINE HCL 50 MG TABLET PO (09:05)
[2022-07-16] MEDS: metFORMIN HCL 250 MG TABLET PO ×2 (09:05→17:23)
[2022-07-16] MEDS: FLUTICASONE PROPIONATE 0.05% NA SPR 16 GM BTL (*BKC) 2 SPRAY NASAL (09:05)
[2022-07-16 09:55] LABS: Hemoglobin A1C 6.6 % (<5.7)
--- NOTE | 2022-07-16 10:47 | PCSTNOTE ---
Please refer to the Bedside Swallow Evaluation in the EMR. Please note, silent aspiration cannot be ruled out at bedside.
[2022-07-16 11:29] LABS: Glucose Point of Care 123 mg/dl (65-105)
[2022-07-16] MEDS: LORazepam (*CRX) 0.5 MG TABLET PO (14:13)
--- NOTE | 2022-07-16 14:22 | PC.NURSE ---
to MRI per stretcher. ivf saline locked
--- NOTE | 2022-07-16 15:16 | PC.NURSE ---
patient returning to room from [facility]
[2022-07-16 15:55] VITALS: BP 112/48; PULSE 90; RESP 20; TEMP 36.6; O2SAT 97
[2022-07-16 16:39] LABS: Glucose Point of Care 133 mg/dl (65-105)
[2022-07-16] MEDS: LIDOCAINE HCL 2% VISC SOLN 15 ML UDC 5 ML MUCOUS MEM (17:22)
[2022-07-16] MEDS: SIMVASTATIN 20 MG TABLET PO (17:23)
[2022-07-16] MEDS: LOSARTAN POTASSIUM 50 MG TABLET PO (17:23)
[2022-07-16 22:00] VITALS: BP 113/67; PULSE 93; RESP 16; TEMP 37.2; O2SAT 97
[2022-07-16] MEDS: PHENOL/SOD PHENO SPRAY CHERRY (*BKC) 2 SPRAY MUCOUS MEM (22:02)
[2022-07-16 22:23] LABS: Glucose Point of Care 141 mg/dl (65-105)
[2022-07-17 06:00] VITALS: BP 111/67; PULSE 73; RESP 16; TEMP 36.4; O2SAT 91
[2022-07-17 08:13] LABS: Glucose Point of Care 141 mg/dl (65-105)
[2022-07-17] MEDS: PHENOL/SOD PHENO SPRAY CHERRY (*BKC) 2 SPRAY MUCOUS MEM (08:52)
[2022-07-17] MEDS: FLUTICASONE PROPIONATE 0.05% NA SPR 16 GM BTL (*BKC) 2 SPRAY NASAL (08:52)
[2022-07-17] MEDS: metFORMIN HCL 250 MG TABLET PO (08:53)
[2022-07-17] MEDS: SERTRALINE HCL 50 MG TABLET PO (08:53)
[2022-07-17] MEDS: HEPARIN SODIUM 5,000 UNITS/ML VIAL 5000 UNITS SUB-Q (08:53)
--- NOTE | 2022-07-17 11:11 | PM.DS ---
DS: Admitting Diagnosis Discharge Date July 17, 2022 Admitting Diagnosis UTI DS: Discharge Diagnosis Discharge Diagnosis (1) Gastroenteritis: Code(s): K52.9 - Noninfective gastroenteritis and colitis, unspecified Status: Acute (2) Urinary tract infection: Code(s): N39.0 - Urinary tract infection, site not specified Status: Acute Plan # gastroenteritis # acute kidney injury # mild lactic acidosis -patient has signs and symptoms of gastroenteritis with nausea/vomiting. CT scan abdomen shows signs of enteritis -acute kidney injury creatinine 1.4, previous was 0.6 also patient has some mild lactic acidosis of 2.2, will continue IV -IV fluids: Continue normal saline for dehydration -Zofran for nausea, continue supportive -patient 7 chronic dysphagia with her surgery history # possible urinary tract infection -patient is asymptomatic for urinary symptoms however UA is concerning for possible infection -antibiotics: Given Rocephin a ED, will continue for now and re-evaluate # other chronic conditions-will reconcile home medications -type 2 diabetes: Accu-Cheks a.c. HS, hypoglycemia protocol, low-dose sliding scale insulin, holding home metformin and Januvia with lactic acidosis, checking A1c -essential hypertension: Slightly hypotensive, continue IV fluids and hold home losartan -anxiety/depression: Sertraline, lorazepam -hyperlipidemia: Simvastatin -oral cancer surgery: Status post resection -facial lesion status post biopsy: Patient had overdue stitches on right side of face that needed to be removed, I removed stitches in ED. patient has follow-up with Dermatology on 09/14/2022. She states there may be other lesions in need to be biopsied. Patient also has a lesion on her scalp that Dermatology needs to follow-up with -eczema? : Patient has lesion on scalp and needs to be looked at by Dermatology Diet: Diabetic, dysphagia pureed diet, have speech therapy evaluate DVT prophylaxis: Heparin Code status: Full code Disposition: Observation, likely home in 1-3 days DS: Summary Hospital Course Hospital Course: patient is an 82-year-old female came in with some abdominal cramping and some nausea vomiting. She was found to have a gastroenteritis and likely UTI. She did have some common bile duct dilation but no gallbladder. GI was consulted MRCP was obtained and did not reveal any stone or mass. GI recommended patient to be discharged. She will be discharged on antibiotics for her UTI but otherwise is stable and can be discharged home Time Spent with Patient Time attestation: Total time spent providing and/or coordinating discharge services: Exam Narrative: - GENERAL: Pleasant elderly woman. Well-nourished. - EYES: EOMI. Anicteric. - HENT: Moist mucous membranes. Difficulty opening os of mouth. Significant surgical changes with lower jaw. Stitches on right side of face with sutures and erythema/swelling along suture line, no purulence, dry skin over stitches. Is a dry scaly lesion on the top of her scalp which patient had been picking at - LUNGS: Clear to auscultation bilaterally, no wheezing, rhonchi, or rales. - CARDIOVASCULAR: Regular rate and rhythm. - ABDOMEN: Soft, non-tender and non-distended. No palpable masses. - EXTREMITIES: No edema. Peripheral pulses 2+. Non-tender. - NEUROLOGIC: No focal neurological deficits. CN II-XII grossly intact. - PSYCHIATRIC: Awake, Alert and oriented x 3. Appropriate mood and affect. - SKIN: Lesion on right side face as above - LYMPH: No cervical lymphadenopathy. DS: Data Data Completed and Pending Labs on day of discharge: Labs from last 24 hours 07/17/22 07/16/22 07/16/22 07:59 22:19 16:37 POC Capillary Glucose 141 H 141 H 133 H 07/16/22 11:22 POC Capillary Glucose 123 H Preliminary micro results at discharge 07/16/22 06:02 Blood Culture - Preliminary Blood 07/16/22 06:01 Blood Culture - Preliminary Blood
--- NOTE | 2022-07-17 13:38 | WPDGICN ---
GI Consult Note Consult date/time: 07/17/22 13:38 HPI: I never saw patient, she left the hospital before I was able to talk to her [facility] Past Medical History Medical History Anxiety and depression Dyslipidemia Essential hypertension GERD (gastroesophageal reflux disease) Patient denies significant medical history Type 2 diabetes mellitus Surgical History Surgical History H/O oral surgery Family History Family History Father Lymphoma Mother Cervical cancer Social History Social History Smoking status: Never smoker Alcohol intake: never Substance use: never Lack of Transportation: No Lack of Food: Never True Current Housing: I Have Housing Concerned About Future Housing: No Difficulty Paying Gas/Electric Bills: No Difficulty Paying for Meds: No Currently Unemployed: No Education: High School Diploma/GED Difficulty w/ Childcare or Family Care: No Gender identity (if verbalized by the patient): Female Spiritual care concerns: No Meds Home Medications and Allergies Home Medications Medication Instructions Recorded Confirmed Type sertraline 50 mg tablet 50 mg PO DAILY #90 tabs 05/12/22 07/16/22 Rx lorazepam 0.5 mg tablet 0.5 mg PO TID PRN Anxiety #90 tabs 05/31/22 07/16/22 Rx simvastatin 20 mg tablet 20 mg PO DAILY #90 tabs 06/21/22 07/16/22 Rx losartan 50 mg tablet 50 mg PO DAILY #90 tabs 07/06/22 07/16/22 Rx lidocaine HCl 2 % mucosal solution 5 ml mucous membrane QID PRN pain 07/12/22 07/16/22 Rx (Lidocaine Viscous) #100 mL cefdinir 300 mg capsule 300 mg PO Q12H 7 days #14 caps 07/16/22 Rx fluticasone propionate 50 2 spray intranasal DAILY 07/16/22 07/16/22 History mcg/actuation nasal spray,suspension metformin 500 mg tablet 250 mg PO BID 07/16/22 07/16/22 History sitagliptin phosphate 50 mg tablet 50 mg PO DAILY 07/16/22 07/16/22 History (Januvia) Allergies Allergy/AdvReac Type Severity Reaction Status Date / Time Penicillins Allergy Mild HIVES Verified 07/29/22 15:32 doxycycline AdvReac Unknown CAUSED Verified 07/29/22 15:32 ESOPHAGITIS PER PT Results Labs 07/15/22 21:52 07/15/22 21:52
== END 2022-07-17 12:00 | disposition home or self-care (01) ==
LOC: ANHED 07-16 01:10 → ANH3MEDSUR 07-16 05:25
PROVIDERS: Emergency Medicine; Physician Assistant; Admitting Provider Student in an Organized Health Care Education/Training Program; Emergency Provider Emergency Medicine; PCP Family Medicine; Visit Provider Chiropractor
DX: K52.9 Noninfective gastroenteritis and colitis, unspecified (principal); N39.0 Urinary tract infection, site not specified; B96.4 Proteus (mirabilis) (morganii) as the cause of diseases classified elsewhere; K57.90 Diverticulosis of intestine, part unspecified, without perforation or abscess without bleeding; R63.0 Anorexia; Z68.37 Body mass index [BMI] 37.0-37.9, adult; F41.9 Anxiety disorder, unspecified; F32.A Depression, unspecified; I10 Essential (primary) hypertension; K21.9 Gastro-esophageal reflux disease without esophagitis; E78.5 Hyperlipidemia, unspecified; E11.9 Type 2 diabetes mellitus without complications; Z98.890 Other specified postprocedural states; Z90.49 Acquired absence of other specified parts of digestive tract; Z85.810 Personal history of malignant neoplasm of tongue; Z20.822 Contact with and (suspected) exposure to COVID-19; Z90.2 Acquired absence of lung [part of]; Z79.51 Long term (current) use of inhaled steroids; Z79.84 Long term (current) use of oral hypoglycemic drugs; Z79.899 Other long term (current) drug therapy
CPT/HCPCS: 36415; 51701; 71046; 74177; 74183; 76376; 80053; 81001; 82948; 83036; 83605; 83690; 85025; 87040; 87077; 87086; 87186; 87502; 87636; 96361; 96372; 96374; 96375; 96376; 99285; A9270; A9577; G0378; J0696; J1644; J1815; J2405; J7030; Q9967; U0003; U0005

== ENCOUNTER 2023-06-27 15:04 | Outpatient (CLI) | payer MEDICARE, SELFPAY ==
--- NOTE | ~2023-06-27 | DEXA_ITS ---
Bone Density Report Name: KENRICK SHIN Age: 83 Sex: Female Ethnicity: White Date of : 1940 Indication: postmenopausal; screening for osteoporosis; height loss; cancer; Referring Provider: SIENNA MAYORGA Study: Bone densitometry was performed. Exam Date: June 27, 2023 Accession number: [id number] Bone Density: Region BMD T-score Z-score Classification AP Spine(L1-L4) 1.112 0.6 3.5 Normal Femoral Neck (Left) 0.805 -0.4 2.1 Normal Total Hip (Left) 0.846 -0.8 1.5 Normal Femoral Neck (Right) 0.674 -1.6 1.0 Osteopenia Total Hip (Right) 0.736 -1.7 0.6 Osteopenia Total Hip Mean 0.791 -1.3 1.1 Osteopenia World Health Organization criteria for BMD impression classify patients as: Normal (T-score at or above -1.0), Osteopenia (T-score between -1.0 and -2.5), or Osteoporosis (T-score at or below -2.5). 10-year Fracture Risk(1): Major Osteoporotic Fracture 13% Hip Fracture 3.5% Reported Risk Factors: [place] (), Neck BMD=0.674, BMI=22.3 (1) FRAX(R) Version 3.08. Fracture probability calculated for an untreated patient. Fracture probability may be lower if the patient has received treatment. Clinical Information Provided by Patient: Has the following medical conditions: Cancer Patient maximum height was 67 Menopause Age: 48 Drinks caffeinated beverages Onset of menses at age 11 Number of children 2 Impression: The patient has low bone mass, based on the Right Total Hip T-score. The patient has an estimated ten-year risk of hip fracture of 3.5% and an estimated ten-year risk of major fracture of 13%, based on the WHO FRAX algorithm. Discussion: BONE DENSITY IS LOW AT ONE OR MORE SKELETAL SITES. THE PATIENT'S BMD AND CLINICAL RISK FACTORS CONTRIBUTE TO THIS PATIENT'S INCREASED RISK OF FRACTURE. This patient's lowest T-score is low at one or more skeletal sites. It meets the World Health Organization's (WHO) criteria for ?low bone mass? (T-score between -1.0 and -2.5). The patient's 10-year risk of hip fracture as calculated by FRAX exceeds the threshold where pharmacological therapy is recommended by the National Osteoporosis Foundation (NOF). However, all treatment decisions require clinical judgment and consideration of individual patient factors, including patient preferences, comorbidities, previous drug use, risk factors not captured in the FRAX model (e.g., frailty, falls, vitamin D deficiency, increased bone turnover, interval significant decline in bone density) and possible under or overestimation of fracture risk by FRAX. The patient should follow a healthful lifestyle (good nutrition with adequate calcium and vitamin D, and appropriate weight-bearing exercise). Follow-Up: Consider a repeat BMD and Vertebral Fracture Assessment (VFA) exam in 2 yea
== END 2023-06-27 15:05 | disposition home or self-care (01) ==
LOC: ANHIMG 15:06
PROVIDERS: PCP Physician Assistant Medical; Visit Provider Physician Assistant Medical
DX: M85.89 Other specified disorders of bone density and structure, multiple sites (principal); E28.39 Other primary ovarian failure; Z13.820 Encounter for screening for osteoporosis
CPT/HCPCS: 77080

== ENCOUNTER 2023-10-30 19:27 | Emergency (ER) | payer MEDICARE, SELFPAY ==
--- NOTE | ~2023-10-30 | CT_ITS ---
EXAMINATION: CT cervical spine wo con DATE: 10/30/2023 21:42 INDICATION: fall TECHNIQUE: Computed tomography (CT) of the cervical spine was performed without intravenous contrast. Automated exposure control and iterative reconstruction technique were employed. The dose-length pro duct was 155.48 mGy-cm. COMPARISON: 06/20/2010. FINDINGS: Vertebral Body Alignment: Intact. Multilevel stable trace degenerative listheses. Craniocervical and atlantoaxial alignment: Moderate degenerative change with pannus. Alignment intact . Osseous structures/fracture: No evidence of a lytic or blastic process in the visualized spine. No e vidence of acute fracture. Cervical soft tissues: The paraspinal soft tissues planes are maintained. Degenerative changes: Multilevel moderate degenerative disc disease. Multilevel severe facet arthropa thy. Severe bilateral neural foraminal narrowing at C5-6 and C6-7. No severe central canal narrowing. IMPRESSION: No acute fracture or traumatic malalignment in the cervical spine. Reviewed, dictated and finalized at location K. L PATTERN MAKER
--- NOTE | ~2023-10-30 | CT_ITS ---
EXAMINATION: CT brain wo con DATE: 10/30/2023 21:42 INDICATION: fall . TECHNIQUE: Computed tomography (CT) of the head was performed without intravenous contrast. The mA wa s adjusted according to patient size. Iterative reconstruction technique was employed. The dose-lengt h product was 756.67 mGy-cm. COMPARISON: 03/05/2022. FINDINGS: No acute intracranial hemorrhage or extra-axial fluid collection. No hydrocephalus, mass, or herniation. No acute ischemic infarct. Unremarkable dural venous sinus attenuation. No acute osseous abnormality. Retention cyst/polyps and mucosal thickening with surrounding sclerosis in the right maxillary sinus, the remaining aerated spaces are clear. Moderate atrophy and chronic white matter change. Atherosclerotic intracranial calcification. Bilater al lens replacements. IMPRESSION: No acute intracranial process. Reviewed, dictated and finalized at location K. NSION WORKER
[2023-10-30 19:31] VITALS: BP 113/79; PULSE 91; RESP 19; TEMP 36.3; O2SAT 97
--- NOTE | 2023-10-30 20:32 | ECG_ITS ---
Measurements Intervals [place] Rate: 83 P: 48 MN: 170 QRS: 78 QRSD: 94 T: 57 QT: 391 QTc: 461 Interpretive Statements SINUS RHYTHM BORDERLINE T WAVE ABNORMALITY- ANTERIOR LEADS BASELINE ARTIFACT- I, AVR, AVL, AVF, V1-V4 BORDERLINE ECG NO PREVIOUS ECG AVAILABLE FOR COMPARISON Electronically Signed On 10-31-2023 6:47:48 [employer]ALL [employer]DER by Gian Quintanilla D.O.
--- NOTE | 2023-10-30 21:02 | ED.GENADULT ---
HPI - General Adult General Chief complaint: Fall Stated complaint: fall, on ground for 4-5 hours, -LOC, - head hit, Time Seen by Provider: 10/30/23 20:00 Source: patient Mode of arrival: ambulatory Limitations: no limitations History of Present Illness HPI narrative: This is an 83-year-old female who presents to the ED with chief complaint of a fall today. Reports that she had driven home from [employer] and [place] today and when she went to get out of the car she fell onto the garage floor. She reports that she had too many things in her hands and felt off balance as she got of the car. Reports that she went down and was on the for 5 hours by the time family member came to the house and found her down. They were able to help her up and get into the car. She was able to bear weight. Patient states that she has some general body aches but no specific joint pain. Denies LOC. denies hip pain. Denies numbness, weakness, preceding chest pain, shortness of breath or dizziness. Denies lightheadedness. Related Data Allergies Allergy/AdvReac Type Severity Reaction Status Date / Time Penicillins Allergy Mild HIVES Verified 10/30/23 19:36 doxycycline AdvReac Unknown CAUSED Verified 10/30/23 19:36 ESOPHAGITIS PER PT metformin AdvReac Diarrhea Verified 10/30/23 19:36 Review of Systems Review of Systems: All systems as dictated in HPI [facility] Past Medical History Medical History Anxiety and depression Dyslipidemia Essential hypertension GERD (gastroesophageal reflux disease) History of cervical dysplasia Hypothyroidism Oral-mouth cancer Osteopenia Renal insufficiency Type 2 diabetes mellitus Surgical History Surgical History H/O oral surgery Family History Family History Father Lymphoma Mother Cervical cancer Social History Social History Smoking status: Never smoker Alcohol intake: never Substance use: never Lack of Transportation: No Lack of Food: Never True Current Housing: I Have Housing Concerned About Future Housing: No Difficulty Paying Gas/Electric Bills: No Difficulty Paying for Meds: No Currently Unemployed: No Education: High School Diploma/GED Difficulty w/ Childcare or Family Care: No Living arrangements: alone Occupation/Education: retired Gender identity (if verbalized by the patient): Female Spiritual care concerns: No Exam Narrative: GENERAL: Well-appearing, well-nourished, and in no acute distress. HEAD: Normocephalic, atraumatic. EYES: PERRLA and EOMI. ENT: Nares clear, no rhinorrhea or epistaxis. Mucous membranes moist. Oropharynx without tonsillar hypertrophy exudate or other lesions. NECK: Supple. No adenopathy or masses. CHEST: No respiratory distress. Clear to auscultation. No wheezes rales or rhonchi HEART: Regular rate and rhythm. No murmur heard. Normal peripheral pulses. ABDOMEN: Soft, nontender, nondistended, normal active bowel sounds. MSK: Normal range of motion. No edema. SKIN: Scattered areas of ecchymosis to the left elbow, bilateral knees. Skin tears to the same area. No significant laceration or hematoma noted to the face or scalp. NEURO: Alert and oriented x4. No focal deficits. PSYCH: Normal mood and affect. Course Vital Signs Vital signs: Vital Signs Temperature 97.4 F L 10/30/23 19:31 Pulse Rate 91 10/30/23 19:31 Respiratory Rate 19 10/30/23 19:31 Blood Pressure 113/79 10/30/23 19:31 Pulse Oximetry 97 10/30/23 19:31 Oxygen Delivery Room Air 10/30/23 19:31 Temperature 97.4 F L 10/30/23 19:31 Pulse Rate 91 10/30/23 19:31 Respiratory Rate 19 10/30/23 19:31 Blood Pressure 113/79 10/30/23 19:31 Pulse Oximetry 97 10/30/23 19:31 Oxygen Delivery Room A
[2023-10-30 21:28] LABS: Basophils Percent Auto 0.2 % (0.2-1.2); Eosinophils Percent Auto 0.1 % (0-4.4); Hematocrit 41.1 % (37.0-47.0); Hemoglobin 12.8 g/dL (12.0-15.0); Immature Granulocyte Absolute 0.06 K/mm3 (0.00-0.031); Immature Granulocyte Percent A 0.4 % (0-0.5); Lymphocytes Absolute Auto 0.68 K/mm3 (0.9-3.2); Lymphocytes Percent Auto 4.9 % (18.3-44.2); Mean Corpuscular HGB Conc 31.1 g/dl (32-36); Mean Corpuscular Hemoglobin 27.6 pg (26-34); Mean Corpuscular Volume 88.6 fl (80-100); Mean Platelet Volume 11.6 fl (7.4-10.4); Monocytes Absolute Auto 0.8 K/mm3 (0.1-0.6); Monocytes Percent Auto 5.6 % (2.6-8.5); Neutrophils Absolute Auto 12.4 K/mm3 (1.3-6.7); Neutrophils Percent Auto 88.8 % (45.5-73.1); Platelet Count Result 219 k/mm3 (150-375); Red Blood Count 4.64 M/mm3 (4.2-5.4); Red Cell Distribution Width 12.8 % (11.5-14.5); White Blood Count 13.9 K/mm3 (4.5-10.0)
[2023-10-30 21:35] LABS: Alanine Aminotransferase 18 U/L (6-35); Albumin Level 4.3 g/dL (3.5-5.1); Alkaline Phosphatase 128 U/L (38-126); Anion Gap 8 mmol/L (8-16); Aspartate Amino Transferase 38 U/L (14-36); Bilirubin,Total 0.8 mg/dL (0.2-1.3); Blood Urea Nitrogen 41 mg/dL (7-17); Calcium 9.6 mg/dL (8.4-10.2); Carbon Dioxide 29 mmol/L (22-30); Chloride 101 mmol/L (98-107); Creatine Kinase 198 U/L (30-135); Estimated CRCL calculation 28 ml/min; Estimated Glomerular Filt Rate 43; Glucose 230 mg/dL (65-110); Potassium 4.1 mmol/L (3.4-5.0); Sodium 138 mmol/L (137-145)
== END 2023-10-30 23:05 | disposition home or self-care (01) ==
PROVIDERS: Emergency Provider Physician Assistant; PCP Physician Assistant Medical
DX: S81.012A Laceration without foreign body, left knee, initial encounter (principal); S81.011A Laceration without foreign body, right knee, initial encounter; S51.012A Laceration without foreign body of left elbow, initial encounter; I10 Essential (primary) hypertension; E78.5 Hyperlipidemia, unspecified; E11.9 Type 2 diabetes mellitus without complications; E03.9 Hypothyroidism, unspecified; K21.9 Gastro-esophageal reflux disease without esophagitis; M85.80 Other specified disorders of bone density and structure, unspecified site; N28.9 Disorder of kidney and ureter, unspecified; Z85.818 Personal history of malignant neoplasm of other sites of lip, oral cavity, and pharynx; R94.31 Abnormal electrocardiogram [ECG] [EKG]; Z79.84 Long term (current) use of oral hypoglycemic drugs; W17.89XA Other fall from one level to another, initial encounter
CPT/HCPCS: 36415; 70450; 72125; 80053; 82550; 85025; 93005; 99284

== ENCOUNTER 2024-04-24 13:06 | Observation (INO) | payer MEDICARE, SELFPAY ==
[2024-04-24] VITALS (25 sets, daily range): BP systolic 118–134; BP diastolic 48–60; PULSE 76–94; RESP 14–24; TEMP 36.4–36.6; O2SAT 94–100
--- NOTE | ~2024-04-24 | CT_ITS ---
CT head without contrast Indication: Altered mental status COMPARISON: 10/30/2023 Technique: Serial scans were obtained through the brain without the administration of contrast. Dose reduction technique was used on this scan by utilizing automated exposure control and iterative recon struction technique. The dose-length product (DLP) was 605.33 mGy-cm. Findings: There is no evidence of intracranial hemorrhage, mass lesion, or acute infarct. The ventri cles and subarachnoid spaces are dilated, consistent with mild atrophy. Low attenuation regions are seen within the periventricular white matter bilaterally, likely representing changes from chronic mi crovascular ischemic disease. There is no evidence of edema, mass effect or midline shift. There is right maxillary sinus disease. The remaining visualized paranasal sinuses and mastoid air cells are c lear. Impression: No intracranial hemorrhage, mass, or acute infarct. Atrophy and chronic white matter changes, as above. Reviewed, dictated and finalized at location . Impression: No intracranial hemorrhage, mass, or acute infarct. Atrophy and chronic white matter changes, as above.
--- NOTE | ~2024-04-24 | XR_ITS ---
XR chest 2V 04/24/2024 14:29 Indication: Altered mental status Procedure: 2 view chest Comparison: 06/07/2023 Findings: Heart size normal. Coarse interstitial changes are present bilaterally, consistent with chr onic interstitial fibrosis. No acute focal pneumonia, edema or effusion. There is a rounded calcifica tion left upper abdomen, suspicious for splenic artery aneurysm. Mild thoracic spondylosis. The lungs are hyperinflated which is consistent with, but not diagnostic of chronic obstructive pulmonary dise ase. Impression: 1: No acute cardiopulmonary disease. Reviewed, dictated and finalized at location B. Impression: 1: No acute cardiopulmonary disease.
--- NOTE | 2024-04-24 13:58 | ECG_ITS ---
Test Date: 2024-04-24 14:48:24 Measurements Intervals [place] Rate: 87 P: 55 MA: 154 QRS: 76 QRSD: 82 T: 60 QT: 360 QTc: 435 Interpretive Statements SINUS RHYTHM NORMAL ELECTROCARDIOGRAM No previous ECG available for comparison Electronically Signed On 04-24-2024 18:05:43 CDT by Alen Perez M.D.
--- NOTE | 2024-04-24 13:59 | ED.AMS ---
HPI - Altered Mental Status General Chief Complaint: Altered Mental Status <Gayle Priest PA-C - Last Filed: 04/26/24 16:05> Stated Complaint: confusion, fell out of bed <Gayle Priest PA-C - Last Filed: 04/26/24 16:05> Time Seen by Provider: 04/24/24 13:59 <Gayle Priest PA-C - Last Filed: 04/26/24 16:05> Focused HPI: This is a 84 year old female that presents to the ER for confusion. Family member reports she sounded very confused on the phone. She wasn't sure what day it was and thought it was night time. Her family member was concerned she may have a UTI. Reports she fell out of bed yesterday. Denies any focal injuries after this. GENERAL: Elderly, well-nourished, and in no acute distress. HEAD: Normocephalic, atraumatic. CHEST: Clear to auscultation. ?No respiratory distress. HEART: Regular rate and rhythm.? NEURO: ?Alert and oriented x3. No focal deficits Patient screened in triage and initial orders placed.? ?Additional care and disposition to be based upon?diagnostic testing and treatment. <Gayle Priest PA-C - Last Filed: 04/26/24 16:05> History of Present Illness HPI narrative: This is a 84-year-old female who presents to the emergency department for altered mental status. Patient presently is awake alert oriented answers all my questions but the daughter was at bedside states she was not making any sense over the phone earlier today and thinks she has UTI. Patient is not able to take care of herself at home and she does live alone. She has been having frequent falls with potential trauma over last few days. Does not take any blood thinner medications. Patient still drives and normally takes care of herself but the daughter who is adamant states that she is not able to take care of herself and dangers to be left alone. Family is not able to take care of her Na requesting admission for placement of possible after evaluation and treatment of any item underlying causes. Patient self denies any headache, vision changes, chest pain, shortness a breath, nausea or vomiting. She does admit to eating less and going to the bathroom less over the last few days. Denies any trouble urinating or pain with urination or foul order. <Joseph Figueroa MD - Last Filed: 04/24/24 19:15> Related Data Allergies/Adverse Reactions: Allergies Allergy/AdvReac Type Severity Reaction Status Date / Time Penicillins Allergy Mild HIVES Verified 04/24/24 23:36 dapagliflozin [From [facility]] AdvReac Intermediate tongue burn Verified 04/24/24 23:36 doxycycline AdvReac Unknown CAUSED Verified 04/24/24 23:36 ESOPHAGITIS PER PT <Gayle Priest PA-C - Last Filed: 04/26/24 16:05> Review of Systems Review of Systems: As reviewed above in the HPI <Joseph Figueroa MD - Last Filed: 04/24/24 19:15> PMFSH Past Medical History Medical History: Medical History Anxiety and depression Dyslipidemia Essential hypertension GERD (gastroesophageal reflux disease) History of cervical dysplasia Hypothyroidism Oral-mouth cancer Osteopenia Renal insufficiency Type 2 diabetes mellitus <Gayle Priest PA-C - Last Filed: 04/26/24 16:05> Surgical History Surgical History: Surgical History H/O oral surgery <Gayle Priest PA-C - Last Filed: 04/26/24 16:05> Family History Family History: Family History Father Lymphoma Mother Cervical cancer <Gayle Priest PA-C - Last Filed: 04/26/24 16:05> Social History Social History: Social History Social History: Pt is somewhat confident in filling out medical forms. Pt has not received assistance in the last 12 months. Smoking status: Never smoker Alcohol intake: former
[2024-04-24 14:54] LABS: Basophils Percent Auto 0.3 % (0.2-1.2); Eosinophils Absolute Auto 0.1 K/mm3 (0-0.3); Eosinophils Percent Auto 1.2 % (0-4.4); Hemoglobin 13.1 g/dL (12.0-15.0); Immature Granulocyte Absolute 0.04 K/mm3 (0.00-0.031); Immature Granulocyte Percent A 0.4 % (0-0.5); Lymphocytes Absolute Auto 1.41 K/mm3 (0.9-3.2); Lymphocytes Percent Auto 14.4 % (18.3-44.2); Mean Corpuscular Hemoglobin 28.1 pg (26-34); Mean Corpuscular Volume 87.8 fl (80-100); Mean Platelet Volume 11.2 fl (7.4-10.4); Monocytes Absolute Auto 0.6 K/mm3 (0.1-0.6); Monocytes Percent Auto 6.1 % (2.6-8.5); Neutrophils Absolute Auto 7.6 K/mm3 (1.3-6.7); Neutrophils Percent Auto 77.6 % (45.5-73.1); Platelet Count Result 219 k/mm3 (150-375); Red Blood Count 4.67 M/mm3 (4.2-5.4); Red Cell Distribution Width 13.8 % (11.5-14.5); White Blood Count 9.8 K/mm3 (4.5-10.0)
[2024-04-24 15:04] LABS: Alanine Aminotransferase 21 U/L (6-35); Albumin Level 4.3 g/dL (3.5-5.1); Alkaline Phosphatase 109 U/L (38-126); Anion Gap 11 mmol/L (4-12); Aspartate Amino Transferase 48 U/L (14-36); Bilirubin,Total 0.4 mg/dL (0.2-1.3); Blood Urea Nitrogen 39 mg/dL (7-17); Calcium 9.4 mg/dL (8.4-10.2); Carbon Dioxide 28 mmol/L (22-30); Chloride 98 mmol/L (98-107); Estimated CRCL calculation 23 ml/min; Estimated Glomerular Filt Rate 43; Glucose 244 mg/dL (65-110); Potassium 4.3 mmol/L (3.4-5.0); Sodium 137 mmol/L (137-145)
[2024-04-24 15:06] LABS: Partial Thromboplastin Time 28.8 Seconds (22.3-36.8)
[2024-04-24 19:34] LABS: Add Urine Microscopic? YES; Appearance Urine Clear (Clear); Bacteria Urine 4+ /hpf; Bilirubin Urine Negative (Negative); Blood Urine Negative (Negative); Color Urine Yellow (Yellow); Glucose Urine UA Negative (Negative); Ketones Urine Trace mg/dL (Negative); Leukocyte Esterase Ur 3+ LEU/UL (Negative); Nitrate Urine Positive (Negative); Protein Urine Trace mg/dL (Negative); RBC Urine 0-2 /hpf (0-2); Specific Grav Ur 1.019 (1.001-1.035); Squamous Epithelial Cell Urine None Seen /hpf (Few); Urobilinogen Urine 0.2 mg/dL (<2.0); pH Urine 7.5 (5.0-9.0)
--- NOTE | 2024-04-24 19:52 | PC.NURSE ---
Pt given pudding and Ensure.
[2024-04-24] MEDS: levoFLOXacin 750 MG/D5W 150 ML 750 MG/150 ML BAG 100 MG IVPB (22:03)
--- NOTE | 2024-04-24 23:34 | PC.NURSE ---
Ravi rivas has no questions - ok to send pt up to floor at this time.
[2024-04-25] VITALS: BP 137/51; PULSE 81; RESP 14; TEMP 36.1; O2SAT 97; BMI 22.1
--- NOTE | 2024-04-25 00:17 | PM.IMHP ---
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 Patient was brought to the emergency room due to generalized weakness unable to take care of herself. Preliminary workup was significant for urinalysis with numerous WBCs present creatinine of 1.2. Patient states that as a result of her recent surgery has had significant weight loss of over 50 lb has been supplemented with Ensure and has been eating pudding consistency foods. Patient has been admitted for further evaluation management and treat CT head without contrast Indication: Altered mental status COMPARISON: 10/30/2023 Technique: Serial scans were obtained through the brain without the administration of contrast. Dose reduction technique was used on this scan by utilizing automated exposure control and iterative reconstruction technique. The dose-length product (DLP) was 605.33 mGy-cm. Findings: There is no evidence of intracranial hemorrhage, mass lesion, or acute infarct. The ventricles and subarachnoid spaces are dilated, consistent with mild atrophy. Low attenuation regions are seen within the periventricular white matter bilaterally, likely representing changes from chronic microvascular ischemic disease. There is no evidence of edema, mass effect or midline shift. There is right maxillary sinus disease. The remaining visualized paranasal sinuses and mastoid air cells are clear. Impression: No intracranial hemorrhage, mass, or acute infarct. Atrophy and chronic white matter changes, as above. XR chest 2V 04/24/2024 14:29 Indication: Altered mental status Procedure: 2 view chest Comparison: 06/07/2023 Findings: Heart size normal. Coarse interstitial changes are present bilaterally, consistent with chronic interstitial fibrosis. No acute focal pneumonia, edema or effusion. There is a rounded calcification left upper abdomen, suspicious for splenic artery aneurysm. Mild thoracic spondylosis. The lungs are hyperinflated which is consistent with, but not diagnostic of chronic obstructive pulmonary disease. Impression: 1: No acute cardiopulmonary disease. Review of Systems Review of Systems: Generalized weakness, weight loss PMFSH Past Medical History Medical History Anxiety and depression Dyslipidemia Essential hypertension GERD (gastroesophageal reflux disease) History of cervical dysplasia Hypothyroidism Oral-mouth cancer Osteopenia Renal insufficiency Type 2 diabetes mellitus Surgical History Surgical History H/O oral surgery Family History Family History Father Lymphoma Mother Cervical cancer Social History Social History Social History: Pt is somewhat confident in filling out medical forms. Pt has not received assistance in the last 12 months. Smoking status: Never smoker Alcohol intake: former Substance use: never Substance use type: does not use Do You Feel Safe in your Home?: Yes Lack of Transportation: No Lack of Food: Never True Current Housing: I Do Not Have Housing Concerned About Future Housing: No Difficulty Paying Gas/Electric Bills: No Difficulty Paying for Meds: No Currently Unemployed: No Education: High School Diploma/GED Difficulty w/ Childcare or Family Care: No Living arrangements: alone Occupation/Education: retired Gender identity (if verbalized by the patient): Female Spiritual care concerns: No Meds Home Medications and Allergies Home Medications Medi
[2024-04-25 05:44] VITALS: BP 127/55; PULSE 82; RESP 13; TEMP 36.3; O2SAT 92
[2024-04-25] MEDS: SERTRALINE HCL 25 MG TABLET 75 MG PO (10:55)
[2024-04-25 12:42] VITALS: O2SAT 96
[2024-04-25 14:00] VITALS: BP 128/59; PULSE 93; RESP 17; TEMP 36.7; O2SAT 99; BMI 22.1
--- NOTE | 2024-04-25 14:35 | PM.EVENT ---
Event Note Event Note Event Note: Patient had been seen and assessed by previous provider same day. I followed up with patient who denied any acute issues but did have complaints of generalized weakness. As reported patient family stated she is no longer safe to care for self and had altered mental status. Patient alert and oriented x4 when I assessed her and answered questions appropriately. Patient with previous history of oral mouth cancer with resection, ST ordered and following dietary recommendations. Glucose remains elevated will get A1C last one was 6.1. Cr 1.2 at baseline but UA consistent with a UTI which could have contributed to patient AMS on arrival currently on Levofloxacin IVPB pending cultures. Vitals stable and other labs unremarkable. CC consulted for possible placement.
[2024-04-25 21:07] VITALS: BP 134/69; PULSE 81; RESP 14; TEMP 36.8; O2SAT 97
[2024-04-26 06:00] VITALS: BP 113/52; PULSE 71; RESP 12; TEMP 36.5; O2SAT 97
--- NOTE | 2024-04-26 07:16 | P.CDI_ITS ---
Severe protein calorie malnutrition related to inadequate oral intake secondary to head and neck cancer; as evidenced by severe muscle wasting and fat loss; intakes <75% needs >1 month; swallowing difficulty CDI Query Clarification Request BMI: 22.2 Nutritional Diagnostic Statement: Please refer to the comprehensive nutrition assessment for further information. If you agree with diagnosis of Severe protein calorie malnutrition related to inadequate oral intake secondary to head and neck cancer; as evidenced by severe muscle wasting and fat loss; intakes <75% needs >1 month; swallowing difficulty. Please specify severity if known: * Mild * Moderate * Severe * Other/Unknown
[2024-04-26 07:26] LABS: Hematocrit 37.9 % (37.0-47.0); Hemoglobin 11.9 g/dL (12.0-15.0); Mean Corpuscular HGB Conc 31.4 g/dl (32-36); Mean Corpuscular Hemoglobin 27.6 pg (26-34); Mean Corpuscular Volume 87.9 fl (80-100); Mean Platelet Volume 11.7 fl (7.4-10.4); Platelet Count Result 186 k/mm3 (150-375); Red Blood Count 4.31 M/mm3 (4.2-5.4); Red Cell Distribution Width 13.7 % (11.5-14.5); White Blood Count 7.7 K/mm3 (4.5-10.0)
[2024-04-26 07:52] LABS: Alanine Aminotransferase 18 U/L (6-35); Albumin Level 3.8 g/dL (3.5-5.1); Alkaline Phosphatase 97 U/L (38-126); Anion Gap 6 mmol/L (4-12); Aspartate Amino Transferase 39 U/L (14-36); Bilirubin,Total 0.3 mg/dL (0.2-1.3); Blood Urea Nitrogen 31 mg/dL (7-17); Calcium 9.1 mg/dL (8.4-10.2); Carbon Dioxide 30 mmol/L (22-30); Chloride 100 mmol/L (98-107); Estimated CRCL calculation 25 ml/min; Estimated Glomerular Filt Rate 47; Glucose 149 mg/dL (65-110); Potassium 3.8 mmol/L (3.4-5.0); Sodium 136 mmol/L (137-145)
[2024-04-26 08:24] LABS: Hemoglobin A1C 7.1 % (<5.7)
[2024-04-26] MEDS: SERTRALINE HCL 25 MG TABLET 75 MG PO (09:33)
--- NOTE | 2024-04-26 13:15 | P.PNIM_ITS ---
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 * Monitor CBC, CMP watch for sepsis. * Monitor vital signs. * Levaquin in cultures * Start probiotics to prevent antibiotic induced diarrhea * Monitor for obstructive uropathy and pyelonephritis (5) Essential hypertension: Code(s): I10 - Essential (primary) hypertension Status: Acute Assessment and Plan: * Stable * Monitor per unit protocol (6) Severe protein-calorie malnutrition: Code(s): E43 - Unspecified severe protein-calorie malnutrition Status: Acute Assessment and Plan: * Poor oral intake due to past surgical Will of mandible * Speech therapy * Protein shakes with each meal * Dietitian consulted Plan Code status: Full code per patient DVT prophylaxis: Lovenox Stress ulcer prophylaxis: Rayna PT/OT notes: PT OT recommend SNF Disposition: Patient continues admission for urinary tract infection and failure to thrive with generalized weakness plan is discharged to [facility] once insurance authorization is received. 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 Patient was brought to the emergency room due to generalized weakness unable to take care of herself. Preliminary workup was significant for urinalysis with numerous WBCs present creatinine of 1.2. Patient states that as a result of her recent surgery has had significant weight loss of over 50 lb has been supplemented with Ensure and has been eating pudding consistency foods. Patient has been admitted for further evaluation management and treat 04/25/24: Assumed Care Patient had been seen and assessed by previous provider same day. I followed up with patient who denied any acute issues but did have complaints o
--- NOTE | 2024-04-26 13:15 | PM.IMPN ---
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 Monitor CBC, CMP watch for sepsis. Monitor vital signs. Levaquin in cultures Start probiotics to prevent antibiotic induced diarrhea Monitor for obstructive uropathy and pyelonephritis (5) Essential hypertension: Code(s): I10 - Essential (primary) hypertension Status: Acute Assessment and Plan: Stable Monitor per unit protocol (6) Severe protein-calorie malnutrition: Code(s): E43 - Unspecified severe protein-calorie malnutrition Status: Acute Assessment and Plan: Poor oral intake due to past surgical Will of mandible Speech therapy Protein shakes with each meal Dietitian consulted Plan Code status: Full code per patient DVT prophylaxis: Lovenox Stress ulcer prophylaxis: Na PT/OT notes: PT OT recommend SNF Disposition: Patient continues admission for urinary tract infection and failure to thrive with generalized weakness plan is discharged to [facility] once insurance authorization is received. 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 Patient was brought to the emergency room due to generalized weakness unable to take care of herself. Preliminary workup was significant for urinalysis with numerous WBCs present creatinine of 1.2. Patient states that as a result of her recent surgery has had significant weight loss of over 50 lb has been supplemented with Ensure and has been eating pudding consistency foods. Patient has been admitted for further evaluation management and treat 04/25/24: Assumed Care Patient had been seen and assessed by previous provider same day. I followed up with patient who denied any acute issues but did have complaints of generalized weakness. As reported patient family stated she is no longer safe to care for self and had altered mental status. Patient alert and oriented x4 when I assessed her and answered questions appropriately. Patient with previous history of oral mouth cancer with resection, ST ordered and following dietary recommendations. Glucose remains elevated will get A1C last one was 6.1. Cr 1.2 at baseline but UA consistent with a UTI which could have contributed to patient AMS on arrival currently on Levofloxacin IVPB pending cultures. Vitals stable and other labs unremarkable. CC consulted for possible placement. 04/26/24: Patient in no acute distress, UA with Proteus mirabilis pending sensitivities labs otherwise unremarkable and vital stable patient working with PT OT plan is for placement to [facility] pending insurance authorization. Review of Systems Review of Systems: All systems reviewed & are unremarkable except as noted in HPI and below Exam Narrative: Physical Exam: GENERAL: Alert and oriented x 3. No acute distress. EYES:
[2024-04-26 13:53] VITALS: PULSE 82; RESP 18; TEMP 36.3; O2SAT 100
[2024-04-26] MEDS: ENOXAPARIN 30 MG/0.3 ML SYRINGE SUB-Q (14:33)
[2024-04-26] MEDS: LORazepam (*CRX) 0.5 MG TABLET 1.5 MG PO (20:40)
[2024-04-26] MEDS: levoFLOXacin 750 MG/D5W 150 ML 750 MG/150 ML BAG 100 MG IVPB (20:40)
[2024-04-26 21:32] VITALS: BP 137/69; PULSE 74; RESP 18; TEMP 36.7; O2SAT 99
[2024-04-27 06:00] VITALS: BP 119/50; PULSE 80; RESP 18; TEMP 36.6; O2SAT 99
[2024-04-27 07:04] LABS: Hematocrit 39.3 % (37.0-47.0); Hemoglobin 12.2 g/dL (12.0-15.0); Mean Corpuscular Hemoglobin 27.8 pg (26-34); Mean Corpuscular Volume 89.5 fl (80-100); Mean Platelet Volume 11.1 fl (7.4-10.4); Platelet Count Result 182 k/mm3 (150-375); Red Blood Count 4.39 M/mm3 (4.2-5.4); Red Cell Distribution Width 13.9 % (11.5-14.5); White Blood Count 8.6 K/mm3 (4.5-10.0)
[2024-04-27 07:10] LABS: Alanine Aminotransferase 18 U/L (6-35); Albumin Level 3.7 g/dL (3.5-5.1); Alkaline Phosphatase 85 U/L (38-126); Anion Gap 8 mmol/L (4-12); Aspartate Amino Transferase 30 U/L (14-36); Bilirubin,Total 0.3 mg/dL (0.2-1.3); Blood Urea Nitrogen 35 mg/dL (7-17); Carbon Dioxide 31 mmol/L (22-30); Chloride 97 mmol/L (98-107); Estimated CRCL calculation 23 ml/min; Estimated Glomerular Filt Rate 43; Glucose 184 mg/dL (65-110); Potassium 3.8 mmol/L (3.4-5.0); Sodium 136 mmol/L (137-145)
--- NOTE | 2024-04-27 07:48 | P.PNIM_ITS ---
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 * Monitor CBC, CMP watch for sepsis. * Monitor vital signs. * Levaquin in cultures * Start probiotics to prevent antibiotic induced diarrhea * Monitor for obstructive uropathy and pyelonephritis 04/27/24 * hills sensitive * transitioned to PO Cefdinir (5) Essential hypertension: Code(s): I10 - Essential (primary) hypertension Status: Acute Assessment and Plan: * Stable * Monitor per unit protocol (6) Severe protein-calorie malnutrition: Code(s): E43 - Unspecified severe protein-calorie malnutrition Status: Acute Assessment and Plan: * Poor oral intake due to past surgical Will of mandible * Speech therapy * Protein shakes with each meal * Dietitian consulted Plan Code status: Full code per patient DVT prophylaxis: Lovenox Stress ulcer prophylaxis: Rayna PT/OT notes: PT OT recommend SNF Disposition: Patient continues admission for urinary tract infection and failure to thrive with generalized weakness plan is discharged to [facility] once insurance authorization is received. 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 Patient was brought to the emergency room due to generalized weakness unable to take care of herself. Preliminary workup was significant for urinalysis with numerous WBCs present creatinine of 1.2. Patient states that as a result of her recent surgery has had significant weight loss of over 50 lb has been supplemented with Ensure and has been eating pudding consistency foods. Patient has been admitted for further evaluation management and treat 04/25/24: Assumed Care Patient had been seen and assessed by previous provider same day. I follow
--- NOTE | 2024-04-27 07:48 | PM.IMPN ---
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 Monitor CBC, CMP watch for sepsis. Monitor vital signs. Levaquin in cultures Start probiotics to prevent antibiotic induced diarrhea Monitor for obstructive uropathy and pyelonephritis 04/27/24 hills sensitive transitioned to PO Cefdinir (5) Essential hypertension: Code(s): I10 - Essential (primary) hypertension Status: Acute Assessment and Plan: Stable Monitor per unit protocol (6) Severe protein-calorie malnutrition: Code(s): E43 - Unspecified severe protein-calorie malnutrition Status: Acute Assessment and Plan: Poor oral intake due to past surgical Will of mandible Speech therapy Protein shakes with each meal Dietitian consulted Plan Code status: Full code per patient DVT prophylaxis: Lovenox Stress ulcer prophylaxis: Na PT/OT notes: PT OT recommend SNF Disposition: Patient continues admission for urinary tract infection and failure to thrive with generalized weakness plan is discharged to [facility] once insurance authorization is received. 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 Patient was brought to the emergency room due to generalized weakness unable to take care of herself. Preliminary workup was significant for urinalysis with numerous WBCs present creatinine of 1.2. Patient states that as a result of her recent surgery has had significant weight loss of over 50 lb has been supplemented with Ensure and has been eating pudding consistency foods. Patient has been admitted for further evaluation management and treat 04/25/24: Assumed Care Patient had been seen and assessed by previous provider same day. I followed up with patient who denied any acute issues but did have complaints of generalized weakness. As reported patient family stated she is no longer safe to care for self and had altered mental status. Patient alert and oriented x4 when I assessed her and answered questions appropriately. Patient with previous history of oral mouth cancer with resection, ST ordered and following dietary recommendations. Glucose remains elevated will get A1C last one was 6.1. Cr 1.2 at baseline but UA consistent with a UTI which could have contributed to patient AMS on arrival currently on Levofloxacin IVPB pending cultures. Vitals stable and other labs unremarkable. CC consulted for possible placement. 04/26/24: Patient in no acute distress, UA with Proteus mirabilis pending sensitivities labs otherwise unremarkable and vital stable patient working with PT OT plan is for placement to [place] [facility] pending insurance authorization. 04/27/24: Patient up in chair in no acute distress and no complaints, transitioned to PO aBX for UTI, waiting on insurance AUTH for [place] [facility]. Re
[2024-04-27 08:00] VITALS: O2SAT 99
[2024-04-27] MEDS: SERTRALINE HCL 25 MG TABLET 75 MG PO (08:00)
[2024-04-27] MEDS: ENOXAPARIN 30 MG/0.3 ML SYRINGE SUB-Q (08:03)
--- NOTE | 2024-04-27 11:27 | PCNFU ---
Nutrition Follow-Up Complete: Severe protein calorie malnutrition related to inadequate oral intake secondary to head and neck cancer; as evidenced by severe muscle wasting and fat loss; intakes <75% needs >1 month; swallowing difficulty. Improve PO intake at least 75% meals and supplements Goal: Pt current nutrition is Regular diet, puree diet, Thrive nutritional ice cream BID for additional 270 kcal and 9 g protein each, Ensure Enlive TID for additional 350 kcal and 20 g protein each. Nutrition recommendation: No new nutrition recommendations. Continue with current nutrition care plan and orders. Agree with orders Last recorded weight is 53.2 kg. Bowel Motility: + 1 BM 04/26/24 Labs Reviewed: Na 136, GFR 43, BUN 35, Cre 1.2, Glu 184 Meds Noted: Lovenox Skin: No skin issue Additional Notes: Pt with mandible removed from past head and neck cancer. Seen by speech, recommended heroes. Pt was primarily taking in liquid diet at home. Intakes ranging from 10-100% here. Supplements are ordered. Discharge to [facility]. Agree with orders. Monitoring intakes, weights, labs, supplement tolerance, swallowing ability, plan of care Follow up in 3 days
[2024-04-27 13:30] VITALS: BMI 22.1
--- NOTE | 2024-04-27 14:02 | P.DS_ITS ---
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 * Monitor CBC, CMP watch for sepsis. * Monitor vital signs. * Levaquin in cultures * Start probiotics to prevent antibiotic induced diarrhea * Monitor for obstructive uropathy and pyelonephritis 04/27/24 * hills sensitive * transitioned to PO Cefdinir (5) Essential hypertension: Code(s): I10 - Essential (primary) hypertension Status: Acute Assessment and Plan: * Stable * Monitor per unit protocol (6) Severe protein-calorie malnutrition: Code(s): E43 - Unspecified severe protein-calorie malnutrition Status: Acute Assessment and Plan: * Poor oral intake due to past surgical Will of mandible * Speech therapy * Protein shakes with each meal * Dietitian consulted Plan Disposition: Patient Discharged to [facility] bed DS: Summary Hospital Course Reason for hospitalization: UTI/failure to thrive/Deconditioned Hospital Course: Admission: Medical Chart This is an 84-year-old female with past medical history significant for 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 Patient was brought to the emergency room due to generalized weakness unable to take care of herself. Preliminary workup was significant for urinalysis with numerous WBCs present creatinine of 1.2. Patient states that as a result of her recent surgery has had significant weight loss of over 50 lb has been supplemented with Ensure and has been eating pudding consistency foods. Patient has been admitted for further evaluation management and treat 04/25/24: Assumed Care Patient had been seen and assessed by previous provider same day. I followed up with patient who denied any acute issues but did have complaints of generalized weakness. As reported patient family stated she is no longer safe to care for se
--- NOTE | 2024-04-27 14:02 | PM.DS ---
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 Monitor CBC, CMP watch for sepsis. Monitor vital signs. Levaquin in cultures Start probiotics to prevent antibiotic induced diarrhea Monitor for obstructive uropathy and pyelonephritis 04/27/24 hills sensitive transitioned to PO Cefdinir (5) Essential hypertension: Code(s): I10 - Essential (primary) hypertension Status: Acute Assessment and Plan: Stable Monitor per unit protocol (6) Severe protein-calorie malnutrition: Code(s): E43 - Unspecified severe protein-calorie malnutrition Status: Acute Assessment and Plan: Poor oral intake due to past surgical Will of mandible Speech therapy Protein shakes with each meal Dietitian consulted Plan Disposition: Patient Discharged to [facility] DS: Summary Hospital Course Reason for hospitalization: UTI/failure to thrive/Deconditioned Hospital Course: Admission: Medical Chart This is an 84-year-old female with past medical history significant for 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 Patient was brought to the emergency room due to generalized weakness unable to take care of herself. Preliminary workup was significant for urinalysis with numerous WBCs present creatinine of 1.2. Patient states that as a result of her recent surgery has had significant weight loss of over 50 lb has been supplemented with Ensure and has been eating pudding consistency foods. Patient has been admitted for further evaluation management and treat 04/25/24: Assumed Care Patient had been seen and assessed by previous provider same day. I followed up with patient who denied any acute issues but did have complaints of generalized weakness. As reported patient family stated she is no longer safe to care for self and had altered mental status. Patient alert and oriented x4 when I assessed her and answered questions appropriately. Patient with previous history of oral mouth cancer with resection, ST ordered and following dietary recommendations. Glucose remains elevated will get A1C last one was 6.1. Cr 1.2 at baseline but UA consistent with a UTI which could have contributed to patient AMS on arrival currently on Levofloxacin IVPB pending cultures. Vitals stable and other labs unremarkable. CC consulted for possible placement. 04/26/24: Patient in no acute distress, UA with Proteus mirabilis pending sensitivities labs otherwise unremarkable and vital stable patient working with PT OT plan is for placement to [facility] pending insurance authorization. 04/27/24: DISCHARGED Patient up in chair in no acute distress and no complaints, appetite improving. Transitioned to PO aBX for UTI. Insurance authorization received patient discharged to [facility] bed for further Rehab. Status at Discharge Functional status at discharge: uses cane/walker Time Spent with Patient Time attestation
== END 2024-04-27 15:57 | disposition swing bed (61) ==
LOC: ANHED 21:58 → ANH3MEDSUR 23:36
PROVIDERS: Physician Assistant; Admitting Provider Internal Medicine; Emergency Provider Emergency Medicine; PCP Physician Assistant Medical; Visit Provider Nurse Practitioner Family
DX: R62.7 Adult failure to thrive (principal); R41.82 Altered mental status, unspecified; R53.1 Weakness; N39.0 Urinary tract infection, site not specified; B96.4 Proteus (mirabilis) (morganii) as the cause of diseases classified elsewhere; W06.XXXA Fall from bed, initial encounter; R29.6 Repeated falls; E43 Unspecified severe protein-calorie malnutrition; Z68.22 Body mass index [BMI] 22.0-22.9, adult; R13.10 Dysphagia, unspecified; I10 Essential (primary) hypertension; E11.9 Type 2 diabetes mellitus without complications; E78.5 Hyperlipidemia, unspecified; E03.9 Hypothyroidism, unspecified; K21.9 Gastro-esophageal reflux disease without esophagitis; F41.8 Other specified anxiety disorders; Z85.819 Personal history of malignant neoplasm of unspecified site of lip, oral cavity, and pharynx; Z90.09 Acquired absence of other part of head and neck
CPT/HCPCS: 36415; 70450; 71046; 80053; 81001; 83036; 85025; 85027; 85610; 85730; 87077; 87086; 87088; 87186; 92610; 93005; 96365; 96372; 96374; 97110; 97116; 97161; 97166; 97530; 97535; 99285; A9270; G0378; J1650; J1956

== ENCOUNTER 2024-05-28 10:04 | Emergency (ER) | payer MEDICARE, SELFPAY ==
--- NOTE | ~2024-05-28 | CT_ITS ---
CT brain wo con Ordering provider: Carli Lara History: 84 years Female with . fall . Comparison: April 24, 2024 Technique: CT of the head without contrast. Radiation reduction technique utilized.The dose-length product was 605.33 mGy-cm. FINDINGS: BRAIN PARENCHYMA AND CSF SPACES: Mild leukoaraiosis and diffuse cortical atrophy. Mild atheromatous d isease. Old lacunar infarct in the right basal ganglia. No midline shift, mass effect or hemorrhage. The brain parenchyma and CSF spaces are otherwise normal. Empty sella turcica. VISUALIZED PARANASAL SINUSES: Right maxillary sinus disease. MASTOIDS: Well aerated. BONES: The bones appear intact. SOFT TISSUES: Visualized nasopharynx is normal. Superficial soft tissues are normal. IMPRESSION: No acute intracranial findings. Reviewed, dictated and finalized at location A.
--- NOTE | ~2024-05-28 | CT_ITS ---
EXAMINATION: CT cervical spine wo con DATE: 05/28/2024 11:19 INDICATION: Neck injury. Fall. TECHNIQUE: Computed tomography (CT) of the cervical spine was performed without intravenous contrast. Automated exposure control and iterative reconstruction technique were employed. The dose-length pro duct was 124.60 mGy-cm. COMPARISON: CT cervical spine 10/30/2023 FINDINGS: There is 2 mm anterolisthesis of C3 on C4 and C7 on T1. Vertebral body heights are normal. There is mildly decreased disc height at C3-C4, moderately decreased disc height at C4-C5, and severe ly decreased disc height at C5-C6 and C6-C7. The following disc levels are specifically discussed: C2-C3: There is no uncovertebral joint osteoarthritis. There is ankylosis of the facet joints with mi ld hypertrophy. There is no neural foraminal stenosis. There is no central canal stenosis. C3-C4: There is mild left uncovertebral joint osteoarthritis. There is severe right facet joint osteo arthritis. There is ankylosis of left facet joint with severe hypertrophy. There is mild bilateral ne ural foraminal stenosis. There is mild central canal stenosis. C4-C5: There is mild right and moderate left uncovertebral joint osteoarthritis. There is severe bila teral facet joint osteoarthritis. There is mild left neural foraminal stenosis. There is mild central canal stenosis. C5-C6: There is severe bilateral uncovertebral joint osteoarthritis. There is moderate bilateral face t joint osteoarthritis. There is moderate bilateral neural foraminal stenosis. There is mild central canal stenosis. C6-C7: There is severe bilateral uncovertebral joint osteoarthritis. There is severe bilateral facet joint osteoarthritis. There is moderate right and mild left neural foraminal stenosis. There is mild central canal stenosis. C7-T1: There is no uncovertebral joint osteoarthritis. There is severe bilateral facet joint osteoart hritis. There is mild bilateral neural foraminal stenosis. There is no central canal stenosis. IMPRESSION: 1. No fracture. 2. Severe cervical spondylosis. Reviewed, dictated and finalized at location A.
[2024-05-28 10:14] VITALS: BP 111/45; PULSE 102; RESP 16; TEMP 36.4; O2SAT 97
[2024-05-28 11:43] VITALS: BP 135/61; PULSE 86; RESP 20; O2SAT 100
--- NOTE | 2024-05-28 11:44 | ED.FALL ---
HPI - Fall General Chief Complaint: Fall Stated Complaint: fall, hit head Time Seen by Provider: 05/28/24 11:20 Source: patient and family Mode of arrival: wheelchair Limitations: no limitations History of Present Illness HPI Narrative: This is a 84 year old female that presents to the ER after a fall today with head injury. Reports she tripped over her feet and hit her head on a dresser. She did not lose consciousness. Reports a mild headache and neck pain. Otherwise no focal injuries or areas of pain. Denies vomiting, numbness or weakness. Related Data Allergies Allergy/AdvReac Type Severity Reaction Status Date / Time Penicillins Allergy Mild HIVES Verified 05/28/24 10:05 dapagliflozin [From Farga] AdvReac Intermediate tongue burn Verified 05/28/24 10:05 doxycycline AdvReac Unknown CAUSED Verified 05/28/24 10:05 ESOPHAGITIS PER PT Review of Systems Review of Systems: CONSTITUTIONAL: Denies fever EYES: Denies visual changes GASTROINTESTINAL: Denies vomiting NEUROLOGIC: Denies numbness, or weakness. All systems reviewed & are unremarkable except as noted in HPI and below PMFSH Past Medical History Medical History Anxiety and depression Dyslipidemia Essential hypertension GERD (gastroesophageal reflux disease) History of cervical dysplasia Hypothyroidism Oral-mouth cancer Osteopenia Renal insufficiency Type 2 diabetes mellitus Surgical History Surgical History H/O oral surgery Family History Family History Father Lymphoma Mother Cervical cancer Social History Social History Social History: Pt is somewhat confident in filling out medical forms. Pt has not received assistance in the last 12 months. Smoking status: Never smoker Alcohol intake: former Substance use: never Substance use type: does not use Do You Feel Safe in your Home?: Yes Lack of Transportation: No Lack of Food: Never True Current Housing: I Do Not Have Housing Concerned About Future Housing: No Difficulty Paying Gas/Electric Bills: No Difficulty Paying for Meds: No Currently Unemployed: No Education: High School Diploma/GED Difficulty w/ Childcare or Family Care: No Living arrangements: alone Occupation/Education: retired Gender identity (if verbalized by the patient): Female Spiritual care concerns: No Exam Narrative: GENERAL: Elderly, well-nourished, and in no acute distress. HEAD: Normocephalic, atraumatic. EYES: PERRLA and EOMI. ENT: Nares clear, no rhinorrhea or epistaxis. Mucous membranes moist. Oropharynx without tonsillar hypertrophy exudate or other lesions. Bilateral TMs pearly dietrich non-bulging NECK: Supple. No adenopathy or masses. CHEST: Clear to auscultation. No respiratory distress. No wheezes rales or rhonchi HEART: Regular rate and rhythm. No murmur heard. Normal peripheral pulses. BACK: No midline spinal tenderness EXTREMITIES: Normal range of motion. No edema or obvious deformity. SKIN: Warm, dry, no rash. NEURO: No focal deficits. Alert and oriented x3. CN II-XII grossly intact PSYCH: Normal mood and affect Course Course Emergency Course: patient and family updated on workup and agree with plan of care Vital Signs Vital signs: Vital Signs Temperature 97.5 F L 05/28/24 10:14 Pulse Rate 102 H 05/28/24 10:14 Respiratory Rate 16 05/28/24 10:14 Blood Pressure 111/45 L 05/28/24 10:14 Pulse Oximetry 97 05/28/24 10:14 Temperature 97.5 F L 05/28/24 10:14 Pulse Rate 102 H 05/28/24 10:14 Respiratory Rate 16 05/28/24 10:14 Blood Pressure 111/45 L 05/28/24 10:14 Pulse Oximetry 97 05/28/24 10:14 MDM - Fall MDM Narrative Medical decision making narrative: Patient presents
== END 2024-05-28 12:12 ==
PROVIDERS: Emergency Provider Physician Assistant; PCP Physician Assistant Medical
DX: S09.90XA Unspecified injury of head, initial encounter (principal); I10 Essential (primary) hypertension; E78.5 Hyperlipidemia, unspecified; E11.9 Type 2 diabetes mellitus without complications; E03.9 Hypothyroidism, unspecified; N28.9 Disorder of kidney and ureter, unspecified; M85.80 Other specified disorders of bone density and structure, unspecified site; K21.9 Gastro-esophageal reflux disease without esophagitis; F32.A Depression, unspecified; F41.9 Anxiety disorder, unspecified; Z79.84 Long term (current) use of oral hypoglycemic drugs; Z79.899 Other long term (current) drug therapy; M47.812 Spondylosis without myelopathy or radiculopathy, cervical region; W01.190A Fall on same level from slipping, tripping and stumbling with subsequent striking against furniture, initial encounter
CPT/HCPCS: 70450; 72125; 99284

== ENCOUNTER 2024-06-09 12:32 | Emergency (ER) | payer MEDICARE, SELFPAY ==
--- NOTE | ~2024-06-09 | CT_ITS ---
EXAMINATION: CT brain wo con DATE: 06/09/2024 13:19 INDICATION: Fall. TECHNIQUE: Computed tomography (CT) of the head was performed without intravenous contrast. The mA wa s adjusted according to patient size. Iterative reconstruction technique was employed. The dose-lengt h product was 605.33 mGy-cm. COMPARISON: Head CT 05/28/2024 FINDINGS: There are scattered areas of low attenuation in the cerebral white matter. There is no intr acranial hemorrhage, acute infarction, or abnormal intracranial mass lesion. The ventricles are timmy l in size. There are likely changes of ocular lens replacement surgeries. There is mild mucosal thick ening in the paranasal sinuses. There is thickening and sclerosis of the lundberg of right maxillary sin us, consistent with chronic sinusitis. The mastoid air cells are normal. There is left posterior scal p soft tissue swelling. IMPRESSION: 1. Stable extensive nonspecific cerebral white matter disease, which likely represents chronic small vessel ischemic disease. Reviewed, dictated and finalized at location A. IMPRESSION: 1. Stable extensive nonspecific cerebral white matter disease, which likely rep resents chronic small vessel ischemic disease.
--- NOTE | ~2024-06-09 | CT_ITS ---
EXAMINATION: CT cervical spine wo con DATE: 06/09/2024 13:19 INDICATION: Head injury. TECHNIQUE: Computed tomography (CT) of the cervical spine was performed without intravenous contrast. Automated exposure control and iterative reconstruction technique were employed. The dose-length pro duct was 101.95 mGy-cm. COMPARISON: CT cervical spine 05/28/2024 FINDINGS: There is 2 mm retrolisthesis of C5 on C6 and 2 mm anterolisthesis of C7 on T1. Vertebral liss dy heights are normal. There is mildly decreased disc height at C3-C4, moderately decreased disc heig ht at C4-C5, and severely decreased disc height at C5-C6 and C6-C7. The following disc levels are spe cifically discussed: C2-C3: There is no uncovertebral joint osteoarthritis. There is ankylosis of the facet joints with mo derate hypertrophy. There is mild bilateral neural foraminal stenosis. There is no central canal sten osis. C3-C4: There is no uncovertebral joint osteoarthritis. There is severe bilateral facet joint osteoart hritis. There is mild bilateral neural foraminal stenosis. There is no central canal stenosis. C4-C5: There is mild left uncovertebral joint osteoarthritis. There is severe bilateral facet joint o steoarthritis. There is mild left neural foraminal stenosis. There is mild central canal stenosis. C5-C6: There is severe bilateral uncovertebral joint osteoarthritis. There is severe right and modera te left facet joint osteoarthritis. There is moderate bilateral neural foraminal stenosis. There is m ild central canal stenosis. C6-C7: There is severe bilateral uncovertebral joint osteoarthritis. There is severe bilateral facet joint osteoarthritis. There is mild bilateral neural foraminal stenosis. There is mild central canal stenosis. C7-T1: There is no uncovertebral joint osteoarthritis. There is severe bilateral facet joint osteoart hritis. There is mild bilateral neural foraminal stenosis. There is no central canal stenosis. IMPRESSION: 1. No fracture. 2. Severe cervical spondylosis. Reviewed, dictated and finalized at location A.
[2024-06-09 12:55] VITALS: BP 124/51; PULSE 86; RESP 20; TEMP 37; O2SAT 96
--- NOTE | 2024-06-09 14:30 | ED_ITS ---
HPI - General Adult General Chief complaint: Head Injury Stated complaint: Fall, Hit Head Time Seen by Provider: 06/09/24 13:59 History of Present Illness HPI narrative: 84-year-old female presents emergency department for evaluation after having a ground level fall. Patient is supposed to be ambulating with a walker but chooses not to. Patient did strike her head. Patient denies any pain or complaint other than her head. Related Data Allergies Allergy/AdvReac Type Severity Reaction Status Date / Time Penicillins Allergy Mild HIVES Verified 05/28/24 10:05 dapagliflozin [From Farxiga] AdvReac Intermediate tongue burn Verified 05/28/24 10:05 doxycycline AdvReac Unknown CAUSED Verified 05/28/24 10:05 ESOPHAGITIS PER PT Review of Systems Review of Systems: All systems reviewed & are unremarkable except as noted in HPI and below PMFSH Past Medical History Medical History Anxiety and depression Dyslipidemia Essential hypertension GERD (gastroesophageal reflux disease) History of cervical dysplasia Hypothyroidism Oral-mouth cancer Osteopenia Renal insufficiency Type 2 diabetes mellitus Surgical History Surgical History H/O oral surgery Family History Family History Father Lymphoma Mother Cervical cancer Social History Social History Social History: Pt is somewhat confident in filling out medical forms. Pt has not received assistance in the last 12 months. Smoking status: Never smoker Alcohol intake: former Substance use: never Substance use type: does not use Do You Feel Safe in your Home?: Yes Lack of Transportation: No Lack of Food: Never True Current Housing: I Do Not Have Housing Concerned About Future Housing: No Difficulty Paying Gas/Electric Bills: No Difficulty Paying for Meds: No Currently Unemployed: No Education: High School Diploma/GED Difficulty w/ Childcare or Family Care: No Living arrangements: alone Occupation/Education: retired Gender identity (if verbalized by the patient): Female Spiritual care concerns: No Exam Narrative: APPEARANCE: Well appearing, no pain, no distress, well-nourished. HEAD: normocephalic, atraumatic. EYES: PERRLA/EOMI, conjunctivae clear. NOSE: Normal no drainage EARS:TMS clear with good light reflex. THROAT: Pharynx clear, no exudate. NECK: Supple. No adenopathy, no masses. RESPIRATORY: Airway patent, respirations nonlabored. Clear to auscultation bilaterally, no rales, rhonchi, wheezing. CARDIOVASCULAR: Regular rate and rhythm without murmurs rubs or gallops. ABDOMINAL: Soft, nontender, nondistended, normal bowel sounds MUSCULOSKELETAL: Moves all extremities. Strength/ROM intact, No edema, No calf tenderness. NEURO: Alert. Cranial nerves II through XII intact. Grossly intact SKIN: Warm, dry. Normal Color Course Course Emergency Course: A 58-year-old female presents to the emergency department for evaluation after having a fall with subsequent head injury. Patient does complain of pain in the posterior scalp with no evidence of hematoma. Imaging was negative for acute fracture dislocation. Patient was strongly encouraged to continue to use her walker. All questions concerns were addressed. Patient and family are comfortable plan for discharge home. Vital Signs Vital signs: Vital Signs Temperature 98.6 F 06/09/24 12:55 Pulse Rate 86 06/09/24 12:55 Respiratory Rate 20 06/09/24 12:55 Blood Pressure 124/51 L 06/09/24 12:55 Pulse Oximetry 96 06/09/24 12:55 Oxygen Delivery Room Air 06/09/24 12:55 Temperature 98.6 F 06/09/24 12:55 Pulse Rate 81 06/09/24 15:04 Respiratory Rate 16 06/09/24 15:04 Blood Pressure 104/51 L 06/09/24 15:04 Pulse Oximetry 96 06/09/24 12:55 Oxygen Delivery Room Air 06/09/24 12:55 Medical Decision Making Vital Signs Vital Signs: Vital Signs Temperature 98.6 F 06/09/24 12:55 Pulse Rate 86 06/09/24 12:55 Respiratory Rate 20 06/09/24 12:55 Blood Pressure 124/51 L 06/09/24 12:55 Pulse Oximetry 96 06/09/24 12:55 Oxygen Delivery Room Air 06/09/24 12:55 Temperature 98.6 F 06/09/24 12:55 Pulse Rate 81 06/09/24 15:04 Respiratory Rate 16 06/09/24 15:04 Blood Pressure 104/51 L 06/09/24 15:04 Pulse Oximetry 96 06/09/24 12:55 Oxygen Delivery Room Air 06/09/24 12:55 Discharge Plan Discharge Clinical Impression: Head injury Patient Disposition: NH Correction/Asst Living Condition: Stable Instructions: Antibiotic Form, Fall Prevention for Older Adults (ED), Head Injury (ED) Additional Instructions: Use your walker every time you ambulate. Have close follow-up with primary care physician. Prescriptions: No Action simvastatin 20 mg tablet 20 mg PO DAILY Qty: 90 1RF Januvia 50 mg tablet 50 mg PO DAILY Qty: 90 1RF sertraline 50 mg tablet 75 mg PO DAILY Qty: 135 1RF lorazepam 1 mg tablet 1.5 mg PO QHS Qty: 45 5RF ciprofloxacin HCl [Cipro] 500 mg tablet 500 mg PO Q12H Qty: 20 0RF Follow-up/Referrals: Rosalia Escalera PA-C [Primary Care Provider] -
[2024-06-09 15:04] VITALS: BP 104/51; PULSE 81; RESP 16
== END 2024-06-09 15:05 ==
PROVIDERS: Emergency Provider Emergency Medicine; PCP Physician Assistant Medical
DX: S09.90XA Unspecified injury of head, initial encounter (principal); I10 Essential (primary) hypertension; E78.5 Hyperlipidemia, unspecified; E11.9 Type 2 diabetes mellitus without complications; K21.9 Gastro-esophageal reflux disease without esophagitis; E03.9 Hypothyroidism, unspecified; M85.80 Other specified disorders of bone density and structure, unspecified site; N28.9 Disorder of kidney and ureter, unspecified; Z79.84 Long term (current) use of oral hypoglycemic drugs; Z79.899 Other long term (current) drug therapy; W18.30XA Fall on same level, unspecified, initial encounter
CPT/HCPCS: 70450; 72125; 99284

== ENCOUNTER 2024-09-09 07:11 | Emergency (ER) | payer MEDICARE, SELFPAY ==
--- NOTE | ~2024-09-09 | CT_ITS ---
EXAMINATION: CT cervical spine wo con DATE: 09/09/2024 13:38 INDICATION: Fall TECHNIQUE: Computed tomography (CT) of the cervical spine was performed without intravenous contrast. Automated exposure control and iterative reconstruction technique were employed. Exam dose: 104.37 mGy-cm total exam DLP. COMPARISON: 09/05/2024 CT cervical spine FINDINGS: There is reversal of cervical curvature which may be due to muscle spasm. Stable minimal anterolisthesis and moderate degenerative disc disease at C3-4. Moderately severe degenerative disc disease at C4-5. Severe degenerative disease at C5-6 and C6-7, with associated stable mild retrolisthesis at C5-6. Stable minimal anterolisthesis at C7-T1. There is severe degenerative change at the facet joints and the mid and lower uncovertebral joints. Normal alignment at the atlantoaxial joints. C1 and C2 are normally aligned and the odontoid process is intact. No fracture or dislocation or locked facet or prevertebral soft tissue swelling is detected. IMPRESSION: Reversal of cervical curvature Severe cervical spondylosis, stable since 09/05/2024 No fracture or dislocation or locked facet Reviewed, dictated and finalized at Location A. Reviewed, dictated and finalized at location A. NICAL ILLUSTRATOR
--- NOTE | ~2024-09-09 | CT_ITS ---
EXAMINATION: CT brain wo con DATE: 09/09/2024 13:38 INDICATION: Fall. Head injury. TECHNIQUE: Computed tomography (CT) of the head was performed without intravenous contrast. The mA wa s adjusted according to patient size. Iterative reconstruction technique was employed. Exam dose: 60 5.33 mGy-cm total exam DLP. COMPARISON: 09/05/2024 CT head FINDINGS: Prominent bilateral carotid siphon internal carotid artery calcifications are noted. There is nonspecific diminished attenuation of the cerebral white matter, likely due to chronic small vessel ischemic changes. No intracranial mass lesion or hemorrhage, cerebrovascular accident, subdural or epidural hematoma is detected. Moderate central cerebral and mild cerebellar volume loss. No skull fracture or bone destruction. Prominent soft tissue density within the right maxillary sinus, prominent patchy soft tissue thickeni ng of the ethmoid air cells. The mastoid air cells are well-developed and aerated. No fracture or bone destruction of the cranial vault. IMPRESSION: No skull fracture or acute intracranial finding Prominent at soft tissue density within the right maxillary sinus, patchy prominent soft tissue thick ening of the ethmoid air cells, not significantly change since 09/05/2024 Reviewed, dictated and finalized at Location A. Reviewed, dictated and finalized at location A. ING UNDERWRITER IMPRESSION: No skull fracture or acute intracranial finding Prominent at soft tissue density within the right maxillary sinus, patchy promi nent soft tissue thickening of the ethmoid air cells, not significantly change since 09/05/2024
[2024-09-09 07:26] VITALS: BP 115/50; PULSE 85; RESP 20; TEMP 36.2; O2SAT 100
[2024-09-09 07:31] VITALS: BP 115/50; PULSE 85; RESP 20; TEMP 36.2; O2SAT 100
--- NOTE | 2024-09-09 13:11 | ED_ITS ---
HPI - Fall General Chief Complaint: Fall Stated Complaint: GLF, unwitnessed?, no complaints Time Seen by Provider: 09/09/24 12:25 Source: patient and family Limitations: other History of Present Illness HPI Narrative: Patient with history of diabetes mellitus presents after an unwitnessed ground level fall. She has no complaints. In particular she denies any pain anywhere including no headache, chest pain, abdominal pain. Per patient's relative who presents with her, she does not have a diagnosis/history of dementia but she does reside in memory care due to her frequent falls. Relative states that the staff told her that she was found unconscious; this had not been conveyed in other reporting as was alert reported that staff found on the ground. Patient denies any loss of consciousness. She denies being on anticoagulation. She does have old bruises from earlier falls. Patient wants to go home. Relative is asking what they can do so that she does not have to come to the emergency department every time she falls. We discussed this is often protocol and policy at several places but they can discuss this with staff and or another option would be to enroll in hospice. Patient's family had consider this before [facility] they states that this would keep her from receiving the therapies that she wants to (eg PT OT). Patient was recently seen in the emergency department after a fall and she was subsequently found to have COVID and was deemed too weak at that time and was therefore admitted on 09/05/2024 and discharged on 09/22. Patient's family is concerned because she has a history of diabetes but has not eaten anything yet today or taken her medicines. Related Data Allergies Allergy/AdvReac Type Severity Reaction Status Date / Time Penicillins Allergy Mild HIVES Verified 09/05/24 09:35 dapagliflozin (From Farxiga) AdvReac Intermediate tongue burn Verified 09/05/24 09:35 doxycycline AdvReac Unknown CAUSED Verified 09/05/24 09:35 ESOPHAGITIS PER PT PMFSH Past Medical History Medical History Physical deconditioning Cancer Osteopenia History of cervical dysplasia Hypothyroidism Oral-mouth cancer Renal insufficiency Essential hypertension Anxiety and depression Type 2 diabetes mellitus Dyslipidemia GERD (gastroesophageal reflux disease) Surgical History Surgical History H/O oral surgery Family History Family History Father Lymphoma Mother Cervical cancer Social History Social History (Updated 09/09/24 @ 21:44 by Erin Lemus MD) Social History: Pt is somewhat confident in filling out medical forms. Pt has not received assistance in the last 12 months. 06/11/24 patient denied SDOH Smoking status: Never smoker Alcohol intake: never Substance use: never Substance use type: does not use Do You Feel Safe in your Home?: Yes Lack of Transportation: No Lack of Food: Never True Current Housing: I Have Housing Concerned About Future Housing: No Difficulty Paying Gas/Electric Bills: No Difficulty Paying for Meds: No Currently Unemployed: No Education: High School Diploma/GED Difficulty w/ Childcare or Family Care: No Living arrangements: other Additional living arrangements comments: [facility] / Memory Care Occupation/Education: retired Gender identity (if verbalized by the patient): Female Spiritual care concerns: No Exam Narrative: GENERAL: Well-appearing, well-nourished, and in no acute distress. Purple hair. HEAD: Normocephalic, atraumatic. EYES: Non injected, non icteric ENT: Nares clear, no rhinorrhea or epistaxis. Micrognathia. NECK: Supple. CHEST: Speaking in full sentences. No respiratory distress. HEART: Regular rate and rhythm. . ABDOMEN: Soft, nondistended. EXTREMITIES: Normal range of motion. No lower extremity edema. SKIN: Warm, dry. Scattered ecchymosis left leg and left arm. NEURO: No focal deficits. Alert and oriented. PSYCH: Normal mood and affect. Course Vital Signs Vital signs: Vital Signs Temperature 97.2 F L 09/09/24 07:26 Pulse Rate 85 09/09/24 07:26 Respiratory Rate 20 09/09/24 07:26 Blood Pressure 115/50 L 09/09/24 07:26 Pulse Oximetry 100 09/09/24 07:26 Temperature 97.2 F L 09/09/24 14:09 Pulse Rate 80 09/09/24 14:09 Respiratory Rate 16 09/09/24 14:09 Blood Pressure 114/49 L 09/09/24 14:09 Pulse Oximetry 100 09/09/24 14:09 Oxygen Delivery Room Air 09/09/24 07:31 MDM - Fall MDM Narrative Medical decision making narrative: Patient presents after unwitnessed fall. In the emergency department she is afebrile with acceptable vital signs, low DBP but MAP >70. Patient's daughter is concerned given that she has not eaten anything at this morning and has not received her diabetic meds. She did have some Coca-Cola; POC glucose acceptable at 170mg/dL. Acetaminophen ordered; changed to liquid/elixir when I was notified by nurse t he patient does not swallow pills of any kind including crushed up. Imaging negative for acute process. Family had asked if there was a way to keep the patient from being sent to the emergency department every time she falls. Patient resides in memory care although family states she does not have a history of/diagnosis of dementia but rather is there because of her frequent falls. Given patient's condition, recommend continuing conversations of goals of care to establish values in wishes as discuss further treatments and interventions. Of note, Medicare guidelines for hospice eligibility for patient's are as follows: Patient will be considered to be in the terminal stage (life expectancy 6 months or less) if they meet the following criteria: 1. Terminal condition cannot be attributed to a single specific illness AND 2. Rapid decline over past 3-6 months evidenced by: Progression of disease evidence by signs, symptoms and test results Decline in palliative performance scale (PPS) to </=50% Involuntary weight loss greater than 10% and/or albumin < 2.5 Given this, patient might not currently meet criteria but a palliative care consult might be appropriate. These instructions are also included in discharge paperwork. Patient discharged in stable condition and prescribed acetaminophen which should be offered to patient. Differential Diagnosis Differential diagnosis: Likely syncope, compression fracture, concussion with loss of consciousness, concussion without loss of consciousness and other (Intracranial hemorrhage) Lab Data Attestation: I reviewed the patient's lab results. Labs: Lab Results 09/09/24 Range/Units 13:24 POC Capillary Glucose 171 H (65-105) mg/dl Imaging Data Radiologist's impression: Impressions Head CT 09/09/24 13:42 IMPRESSION: No skull fracture or acute intracranial finding Prominent at soft tissue density within the right maxillary sinus, patchy prominent soft tissue thickening of the ethmoid air cells, not significantly change since 09/05/[address] 09/09/24 13:47 IMPRESSION: Reversal of cervical curvature Severe cervical spondylosis, stable since 09/05/2024 No fracture or dislocation or locked facet Discharge Plan Discharge Clinical Impression: Cervical spondylosis, Recurrent falls Fall Qualifiers: Encounter type: initial encounter Qualified Code(s): W19.XXXA - Unspecified fall, initial encounter Patient Disposition: NH Detention/Asst Living Condition: Stable Instructions: Antibiotic Form, Fall Prevention for Older Adults (ED) Additional Instructions: No bleeding in the brain or fracture of the bones of the neck. She may continue to be sore and achy from the fall so should be offered acetaminophen/Tylenol. == As we discussed, Given patient's frequent falls, recommend continuing conversations of goals of care to establish values in wishes as discuss further treatments and interventions - especially if do not desire that patient continue to be transferred to the ED after every fall. Of note, Medicare guidelines for hospice eligibility for patient's are as follows: Patient will be considered to be in the terminal stage (life expectancy 6 months or less) if they meet the following criteria: 1. Terminal condition cannot be attributed to a single specific illness AND 2. Rapid decline over past 3-6 months evidenced by: Progression of disease evidence by signs, symptoms and test results Decline in palliative performance scale (PPS) to </=50% Involuntary weight loss greater than 10% and/or albumin < 2.5 Given this, patient might not currently meet criteria but a palliative care consult might be appropriate. === Return to the emergency department with any new or worsening symptoms. Patient Language: Portuguese Prescriptions: New acetaminophen 650 mg tablet extended release 650 mg PO Q8H PRN (Reason: pain) Qty: 30 0RF No Action sennosides-docusate sodium [Senokot-S] 8.6-50 mg Tablet 1 tab PO HS Qty: 14 0RF bisacodyl [Laxative (bisacodyl)] 5 mg Tablet,Delayed Release (Dr/Ec) 5 mg PO BID PRN (Reason: Constipation) Qty: 14 0RF polyethylene glycol 3350 [Miralax] 17 gram/dose powder 17 g PO DAILY Qty: 119 0RF Januvia 50 mg tablet 50 mg PO DAILY Qty: 90 1RF sertraline 50 mg tablet 75 mg PO DAILY Qty: 135 1RF lorazepam 1 mg tablet 1.5 mg PO QHS Qty: 45 5RF Follow-up/Referrals: Rosalia Escalera PA-C [Primary Care Provider] - Stand Alone Forms: [facility] Discharge Time of Disposition: 14:03
[2024-09-09 13:27] LABS: Glucose Point of Care 171 mg/dl (65-105)
[2024-09-09] MEDS: ACETAMINOPHEN ELIXIR 325 MG/10.15 ML UDC 650 MG PO (14:01)
[2024-09-09 14:09] VITALS: BP 114/49; PULSE 80; RESP 16; TEMP 36.2; O2SAT 100
--- NOTE | 2024-09-09 14:13 | PC.NURSE ---
Attempted to call report back to [place] with no answer.
== END 2024-09-09 14:15 ==
PROVIDERS: Emergency Provider Student in an Organized Health Care Education/Training Program; PCP Physician Assistant Medical
DX: M47.812 Spondylosis without myelopathy or radiculopathy, cervical region (principal); W19.XXXA Unspecified fall, initial encounter; R29.6 Repeated falls; E11.9 Type 2 diabetes mellitus without complications; F03.90 Unspecified dementia, unspecified severity, without behavioral disturbance, psychotic disturbance, mood disturbance, and anxiety
CPT/HCPCS: 70450; 72125; 82948; 99284; A9270

== ENCOUNTER 2024-09-25 09:55 | Outpatient (RCR) | payer MEDICARE, SELFPAY ==
[2024-09-25 13:06] VITALS: BMI 18.4
== END 2024-12-10 09:52 | disposition home or self-care (01) ==
LOC: ANHWOC 09:55
PROVIDERS: PCP Physician Assistant Medical; Visit Provider Physician Assistant Medical
DX: L89.90 Pressure ulcer of unspecified site, unspecified stage (principal)
CPT/HCPCS: 99213; G0463

== ENCOUNTER 2025-01-23 16:46 | Outpatient (CLI) | payer MEDICARE, SELFPAY ==
--- NOTE | ~2025-01-23 | XR_ITS ---
AP view of the pelvis and AP and lateral views of the bilateral hips Clinical history: Pain Findings: No acute fracture or dislocation is seen. Osseous alignment is anatomic. Bilateral hip and SI joint spaces are preserved. Soft tissues are unremarkable. Impression: No significant abnormality is seen. Reviewed, dictated and finalized at location . Impression: No significant abnormality is seen.
--- NOTE | ~2025-01-23 | XR_ITS ---
AP and lateral views of the sacrum/coccyx CLINICAL HISTORY: Pain FINDINGS: No acute fracture or dislocation seen. Bilateral hip joints are intact. There is mild degen erative change of both SI joints. Soft tissues are unremarkable. IMPRESSION: No acute abnormality seen. Mild degenerative change of both SI joints. Reviewed, dictated and finalized at [facility].
--- NOTE | ~2025-01-23 | XR_ITS ---
Lumbosacral Spine: AP and lateral views Clinical History: Pain Findings: The normal lordotic curve is maintained. Probable mild compression deformity at the superio r endplate of L4. There is extensive facet arthropathy throughout the lumbar spine. There are mild de generative disc changes. The sacroiliac joints are normally outlined. Impression: Probable mild acute compression deformity at the superior endplate of L4. Extensive facet arthropathy. Reviewed, dictated and finalized at location . Impression: Probable mild acute compression deformity at the superior endplate of L4. Extensive facet arthropathy.
--- OUTSIDE RECORDS SUMMARY | 2025-01-23 16:50 | XMS_ITS | Clinical Summary ---
Author Organization [facility] Address [address] [place] [address] Care Team Providers Care Die Tester Name Role Phone Unavailable Primary Care Provider Unavailabl e Source Comments [facility],non-owned Affiliates and Associated Physician Practices is amultiple site organization consisting of ambulatory clinics and hospital sitesin [place], [place], [place] and [place]. This disclosure is being madepursuant to the Care Everywhere program and may not contain all information available regarding this patient. Last updated 18.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 Gender Identity Not on file Sexual Orientation Not on file Plan of Treatment Health Maintenance Due Date Last Done Comments BONE DENSITY TESTING 1938 DTAP/TDAP/TD VACCINES (1 - Tdap) 1957 PNEUMOCOCCAL VACCINE 50+ (1 of 1 - PCV) 1988 ZOSTER VACCINE (1 of 2) 1988 Respiratory Syncytial Virus (RSV) Vaccine Pt: or over 60 yrs (1 - 1-dose 75+ series) 2013 COVID-19 VACCINE ( - 2023-2 5 season) 2024 DEPRESSION SCREENING 08/29/2024 INFLUENZA VACCINE (Season Ended) 2025 HEPATITIS B VACCINE Aged Out No longe r eligible based on patient's age to complete this topic HIB VACCINE Aged Out No longer eligi ble based on patient's age to complete this topic HPV VACCINE Aged Out No longer eligi ble based on patient's age to complete this topic MENINGOCOCCAL (Group B) VACC INE SHARED DECISION-MAKING Aged Out No longer eligibl e based on patient's age to complete this topic MENINGOCOCCAL GROUPS A/C/Y/W VACCINE Aged Out No longer eligible b ased on patient's age to complete this topic Insurance AETNA AETNA
--- OUTSIDE RECORDS SUMMARY | 2025-01-23 16:50 | XMS_ITS | Encounter Summary ---
Author Organization [facility] Address [address] [place] [address] Care Team Providers Care Bird Raiser Name Role Phone Unavailable Primary Care Provider Unavailabl e Encounter Details Date Type Department Care Team (Late st Contact Info) Description 01/24/2019 Lab Requisition 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 Gender Identity Not on file Sexual Orientation Not on file documented as of this encounter Plan of Treatment Not on file documented as of this encounter Procedures Procedure Name Priority Date/Time Associated Diagnosis Comments DERMATOPATHOLOGY Routine 01/23/2019 12:0 0 AM CDT documented in this encounter Results * DERMATOPATHOLOGY (01/23/2019 12:00 AM CDT) Case Report Dermatopathology Report Case: [id number] Authorizing Provider: Stephanie Betts MD Collected: 01/23/2019 12:00 AM Pathologist: Winston Arviuz MD Received: 01/24/2019 10:11 AM Specimens: A) - Skin, top left shoulder B) - Skin, left FA 9 1:11 PM CDT DERMATOPATHOLOGY LABORATORY Final Diagnosis Specimen A. SKIN, top left shoulder: BASAL CELL CARCINOMA, NODULAR TYPE (C44.619) Specimen B. SKIN, left FA: BASAL CELL CARCINOMA, NODULAR TYPE (C44.619) 9 1:11 PM CDT DERMATOPATHOLOGY LABORATORY at 1311 CDT Clinical History A-B: R/O SCC, growing, non-healing. 1:11 PM T DERMATOPATHOLOGY LABORATORY Gross Description Specimen A: Received is one formalin filled container labeled with the patient's name and designated top left shoulder. The specimen consists of a shave measuring [id number]. Jar 0. Specimen B: Received is one formalin filled container labeled with the patient's name and designated left FA. The specimen consists of a shave measuring [id number]. Jar 0. 1:11 PM T DERMATOPATHOLOGY LABORATORY Microscopic Description Specimen A. SKIN, top left shoulder: Within the dermis there are aggregates of basaloid cells with a high nuclear to cytoplasmic ratio and peripheral palisading. Specimen B. SKIN, left FA: Within the dermis there are aggregates of basaloid cells with a high nuclear to cytoplasmic ratio and peripheral palisading. 1:11 PM T DERMATOPATHOLOGY LABORATORY Disclaimer An external and internal positive and negative controls are appropriate for the histochemical, immunohistochemical and immunofluorescence stain(s) in this case (if any), except where stated explicitly. The performance characteristics of the stain(s) cited in this report were developed and its performance characteristic determined by the Dermatopathology Laboratory at [facility], directed by Dr. Kinsey Arvizu. These tests need not be, and therefore are not, approved by the [place] Food and Drug Administration. The tests are used for clinical purposes. Billing Codes Specimen Charges Stain Charges 57271 [id number] 1 1 1:11 PM CDT DERMATOPATHOLOGY LABORATORY Embedded Images 1:11 PM CDT DERMATOPATHOLOGY LABORATORY Pathology/Cytology TISSUE SPECIMEN FROM SKIN / Unknown 01/23/2019 01/24/2019 10:11 AM CDT Miscellaneous samples (specimen) TISSUE SPECIMEN FROM SKIN / Unknown 01/23/2019 01/24/2019 10:11 AM CDT Stephanie Betts MD LAB - PATHOLOGY/CYTOLOGY OR DERABLES Final Result DERMATOPATHOLOGY LABORATORY [facility] - Department of Dermatology [address] [place] [address], [address] [place] [address], [facility] [phone] documented in this encounter Visit Diagnoses Not on filedocumented in this encounter
--- OUTSIDE RECORDS SUMMARY | 2025-01-23 16:50 | XMS_ITS | Clinical Summary ---
Author Organization [facility] Address [address] [place] [address] Phone Care Team Providers Care Pitch Gatherer Name Role Phone Osmin Larson MD Primary Care Provider [phone] Allergies Active Allergy Reactions Criticality Noted Date Comments Doxycycline Other (See Comments) 10/01/2020 GERD symptoms Penicillins Hives High 09/29/2020 Medications SITagliptin (JANUVIA) 50 mg Tablet Take 50 mg by mouth daily with breakfast. Active metFORMIN (GLUCOPHAGE) 1,000 mg tablet Take 1,000 mg by mouth daily with breakfast. Active simvastatin (ZOCOR) 20 mg tablet Take 20 mg by mouth daily with supper. Active losartan (COZAAR) 50 mg tablet Take 50 mg by mouth daily. Active docosahexaenoi c acid/epa (FISH OIL ORAL) Take by mouth 2 times daily. Active folic acid/multivit- min/lutein (CENTRUM SILVER ORAL) Take by mouth daily. Active psyllium husk (METAMUCIL ORAL) Take by mouth daily. Active chlorhexidine gluconate (Peridex) 0.12 % Mouthwash 10 mL by Mouth/Throat route 3 times daily. 180 mL 3 1 Active chlorhexidine gluconate (Peridex) 0.12 % MouthwashIndic ations:Oral lichen planus 10 mL by Mouth/Throat route 3 times daily. 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 Can take second pill if needed.). 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 Max Daily Amount: 60 mL 118 mL 2 Active OTHER Swish and spit 5mL TID. 120 mL Maalox, 30 mL Nystatin, 100 mL viscous lidocaine, 50 mL Dexamethasone 0.5 mg/5 mL. 300 mL 2 2 Active sertraline (ZOLOFT) 50 mg tablet Take 50 mg by mouth daily. 2 Active fluconazole (DIFLUCAN) 100 mg tablet Take 2 pills on the first day, then 1 pill daily. 11 Tablet 1 4 Active fluticasone propionate (FLONASE) 50 mcg/spray [place], Suspension nasal inhaler SHAKE LIQUID AND USE 1 SPRAY IN EACH NOSTRIL DAILY 16 Gram 3 4 Active Active Problems Problem Noted Date Diagnosed Date Type 2 diabetes mellitus without complications 0 09/30/2021 Encounters Date Type Department Care Team Description 01/16/2025 External Device Data [facility] ABSTRACTION Provider, Abstract 01/15/2025 External Device Data [facility] ABSTRACTION Provider, Abstract from Last 3 Months Immunizations Immunization Administration Dates Next Due (SPIKEVAX) (12 YRS UP PRIMAR Y SERIES) COVID-19 VACCINE - [id number](PF) 100 MCG/0.5 ML IM SUSP 07/07/2021,11/19/2020,10/22/2020 Influenza Seasonal Unspecifi ed Formulation IM 04/29/2020 Family History Medical History Relation Name Comments Breast Cancer Daughter Hodgkin's lymphoma Father Non-hodki ns lymphoma Ovarian Cancer Mother Breast Cancer Sister Relation Name Status Comments Daughter Father Mother Sister Social History Tobacco Use Types Packs/Day Years Used Date Smoking Tobacco: Never Smokeless Tobacco: Never Tobacco Cessation:Counseling Given: Not Answered Alcohol Use Standard Drinks/Week Comments Yes 0 (1 standard drink = 0.6 oz pur e alcohol) Comments No Sex and Gender Information Value Date Recorded Sex Assigned at Not on file Legal Sex Female 3:49 PM PRESCHOOL DISABILITY TEACHER Gender Identity Not on file Sexual Orientation Not on file Last Filed Vital Signs Vital Sign Reading Time Taken Comments Blood Pressure 124/72 10/06/2023 1:20 PM PRESCHOOL DISABILITY TEACHER Pulse 104 11/06/2021 10:58 AM PRESCHOOL DISABILITY TEACHER Temperature 36.2 C (97.1 F) 11/06/2021 10:58 AM PRESCHOOL DISABILITY TEACHER Respiratory Rate 16 11/06/2021 10:58 AM PRESCHOOL DISABILITY TEACHER Oxygen Saturation 99% 11/06/2021 10:58 AM PRESCHOOL DISABILITY TEACHER Inhaled Oxygen Concentration - - Weight 59.4 kg (131 lb) 11/06/2021 10:58 AM PRESCHOOL DISABILITY TEACHER Height 165.1 cm (5' 5) 11/06/2021 10:58 AM PRESCHOOL DISABILITY TEACHER Body Mass Index 21.8 11/06/2021 10:58 AM PRESCHOOL DISABILITY TEACHER Plan of Treatment Health Maintenance Due Date Last Done Comments DIABETES ANNUAL FOOT EXAM 1956 DIABETES ANNUAL RETINAL EXAM 1956 DIABETES HBA1C Q 6 MONTHS 1956 DIABETES MICROALBUMIN ANNUAL SCREEN 1956 LDL CHOLESTEROL ANNUAL 1956 DTAP/TDAP/TD VACCINES (1 - Tdap) 1957 PNEUMOCOCCAL VACCINE 50+ YEA RS (1 of 2 - PCV) 1957 ZOSTER VACCINE (1 of 2) 1988 OSTEOPOROSIS SCREENING 2003 RSV VACCINE (60+ or ) (1 - 1-dose 75+ series) 2013 INFLUENZA VACCINE (#1) 2024 , 04/29/2020, 05/24/2018, Additional history exists COVID-19 Vaccine ( - 2023-2 5 season) 2024 07/07/2021, 11/19/2020, 10/22/2020 Medical Devices Implanted Type Area Photographic Developer And Printer Device Identifier Shelf Expiration Date Model / Serial / Lot Tube Feed [employer]ak 10f [id number] - [id number] Implanted:Qty : 1 on 09/28/2021 by Chico Christian MD at [facility] Feeding Device N/A: Face [employer] f[employer] [id number] 02/25/2022 [id number] / / [id number] [place] [address] AETNA PPO MCR Advance Directives For more information, please contact: [phone] * Full Code (Latest Code Status on File) Date Activated Date Inactivated Comments 09/28/2021 1:32 PM 10/06/2021 7:35 PM * Full Code Date Activated Date Inactivated Comments 09/28/2021 8:41 AM 09/28/2021 1:31 PM Care Teams Pitch Gatherer Relationship Specialty Start Date End Date Osmin Larson MD [address] [place] [phone] PCP - General Internal Medicine 08/26/21
--- OUTSIDE RECORDS SUMMARY | 2025-01-23 16:50 | XMS_ITS | Encounter Summary ---
Author Organization [facility] Address [address] [place] [address] Care Team Providers Care Basting Cleaner Name Role Phone Unavailable Primary Care Provider Unavailabl e Encounter Details Date Type Department Care Team (Late st Contact Info) Description 03/08/2019 Lab Requisition [facility] Care DermPath Lab [address] [facility] [place] [phone] Stephanie Betts MD [address] [facility] 3 [place] [address] Social History Tobacco Use Types Packs/Day Years Used Date Smoking Tobacco: Never Assessed Comments Unknown Sex and Gender Information Value Date Recorded Sex Assigned at Not on file 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 Gender Identity Not on file Sexual Orientation Not on file documented as of this encounter Plan of Treatment Not on file documented as of this encounter Procedures Procedure Name Priority Date/Time Associated Diagnosis Comments DERMATOPATHOLOGY Routine 03/07/2019 12:0 0 AM CDT documented in this encounter Results * DERMATOPATHOLOGY (03/07/2019 12:00 AM CDT) Case Report Dermatopathology Report Case: [id number] Authorizing Provider: Stephanie Betts MD Collected: 03/07/2019 12:00 AM Pathologist: Winston Arvizu MD Received: 03/08/2019 10:06 AM Specimens: A) - Skin, top of left shoulder B) - Skin, left FA 9 4:06 PM CDT DERMATOPATHOLOGY LABORATORY Final Diagnosis Specimen A. SKIN, top of left shoulder: DERMAL SCAR RESIDUAL BASAL CELL CARCINOMA NOT IDENTIFIED (L90.5) Specimen B. SKIN, left FA: BASAL CELL CARCINOMA (C44.619) NOT PRESENT AT MARGIN DERMAL FIBROSIS (L90.5) 4:06 PM T DERMATOPATHOLOGY LABORATORY at 1606 CDT Clinical History A-B: R/O BCC, biopsy proven See [id number] 4:06 PM [facility] DERMATOPATHOLOGY LABORATORY Gross Description Specimen A: Received is one formalin filled container labeled with the patient's name and designated top of left shoulder. The specimen consists of a non-oriented ellipse of skin measuring [id number] mm. The epidermal surface is unremarkable. The margin is inked green. The 12 o'clock and 6 o'clock tips are submitted in cassette 1. The remainder of the ellipse is serially sectioned and submitted in cassette 2-4. Jar 0. Specimen B: Received is one formalin filled container labeled with the patient's name and designated left FA. The specimen consists of a non-oriented ellipse of skin measuring 32x7x2 mm. The epidermal surface is unremarkable. The margin is inked green. The 12 o'clock and 6 o'clock tips are submitted in cassette 1. The remainder of the ellipse is serially sectioned and submitted in cassette 2-3. Jar 0. 4:06 PM [facility] DERMATOPATHOLOGY LABORATORY Microscopic Description Specimen A. SKIN, top of left shoulder: There are fibroblasts and collagen bundles oriented parallel to the skin surface. There are elongated blood vessels, some of which are oriented perpendicular to the skin surface. No basal cell carcinoma is identified. Specimen B. SKIN, left FA: Within the dermis there are aggregates of basaloid cells with a high nuclear to cytoplasmic ratio and peripheral palisading. This lesion is not present at the margin of the specimen. The epidermis is unremarkable. There is focal dermal fibrosis. 4:06 PM [facility] DERMATOPATHOLOGY LABORATORY Disclaimer An external and internal positive and negative controls are appropriate for the histochemical, immunohistochemical and immunofluorescence stain(s) in this case (if any), except where stated explicitly. The performance characteristics of the stain(s) cited in this report were developed and its performance characteristic determined by the Dermatopathology Laboratory at [facility], directed by Dr. Kinsey Arvizu. These tests need not be, and therefore are not, approved by the [place] Food and Drug Administration. The tests are used for clinical purposes. Billing Codes Specimen Charges Stain Charges [id number] 1 1 9 4:06 PM CDT DERMATOPATHOLOGY LABORATORY Embedded Images 9 4:06 PM CDT DERMATOPATHOLOGY LABORATORY Pathology/Cytology TISSUE SPECIMEN FROM SKIN / Unknown 03/07/2019 03/08/2019 10:06 AM CDT Miscellaneous samples (specimen) TISSUE SPECIMEN FROM SKIN / Unknown 03/07/2019 03/08/2019 10:06 AM CDT Stephanie Betts MD LAB - PATHOLOGY/CYTOLOGY OR DERABLES Final Result DERMATOPATHOLOGY LABORATORY [facility] - Department of Dermatology [address] [place] [address] [address] Floor Lab [address] [phone] documented in this encounter Visit Diagnoses Not on filedocumented in this encounter
== END 2025-01-23 16:47 | disposition home or self-care (01) ==
PROVIDERS: PCP Physician Assistant Medical; Visit Provider Nurse Practitioner Family
DX: M47.898 Other spondylosis, sacral and sacrococcygeal region (principal); M47.816 Spondylosis without myelopathy or radiculopathy, lumbar region; M25.559 Pain in unspecified hip; W19.XXXA Unspecified fall, initial encounter
CPT/HCPCS: 72100; 72220; 73521